=== PATIENT | female | born 1960 | race Caucasian/White ===

== ENCOUNTER 2017-06-10 01:59 | Emergency (ER) | payer OTHER ==
[2017-06-10] MEDS ORDERED: NORMAL SALINE 1000 ML 1,000 ML IV ONE (02:52)
[2017-06-10 02:54] LABS: ABSOLUTE BASOPHILS # (AUTO) 0.1 10^3/uL (0.0-0.2); ABSOLUTE EOSINOPHILS # (AUTO) 0.1 10^3/uL (0.0-0.6); ABSOLUTE LYMPHOCYTES (AUTO) 1.3 10^3/uL (0.5-4.7); ABSOLUTE MONOCYTES (AUTO) 0.6 10^3/uL (0.1-1.4); ABSOLUTE NEUT (AUTO) 7.8 10^3/uL (1.7-8.2); EOSINOPHILS % (AUTO) 0.9 % (0-6); HEMATOCRIT 34.5 % (36.0-47.0); HEMOGLOBIN 11.6 g/dL (12.0-15.5); HGB HCT DIFFERENCE 0.3; LYMPHOCYTES % (AUTO) 13.3 % (13-45); MEAN CORPUSCULAR HEMOGLOBIN 27.2 pg (27.0-33.4); MEAN CORPUSCULAR HGB CONC 33.7 g/dL (32.0-36.0); MEAN CORPUSCULAR VOLUME 81 fl (80-97); MONOCYTES % (AUTO) 6.4 % (3-13); RED BLOOD COUNT 4.28 10^6/uL (3.72-5.28); RED CELL DISTRIBUTION WIDTH 14.5 % (11.5-14.0); SEGMENTED NEUTROPHILS % (AUTO) 78.4 % (42-78); WHITE BLOOD COUNT 9.9 10^3/uL (4.0-10.5)
--- NOTE | 2017-06-10 02:55 | ER Document Report ---
ED General - General Chief Complaint: Fever Stated Complaint: FEVER/BODYACHES Time Seen by Provider: 06/10/17 02:46 Notes: Patient is a 56-year-old female presents with fever and body aches. She started having a fever 2 nights ago. Throughout the day she has had some decreased appetite but no vomiting. No cough or congestion. T-max at home was 101.1. She said when her fever got high and she had complete pain throughout her entire body and is very painful. She had lymphoma in 2004. She said at that time she received Ranexa. She says it felt similar to the pain she got when she received that. She has not had lymphoma recently and she has been in remission. She is followed by Dr. Amber Suarez. She otherwise feels improved now and has no other complaints at this time. TRAVEL OUTSIDE OF THE [place] IN LAST 30 DAYS: No - Related Data Allergies/Adverse Reactions: amoxicillin trihydrate [From Augmentin] Allergy (Severe, Verified 06/10/17 02:01 ) rash Potassium Clavulanate * [From Augmentin] Allergy (Severe, Verified 06/10/17 02: 01) rash Sulfa (Sulfonamide Antibiotics) Allergy (Severe, Verified 06/10/17 02:01) rash Past Medical History - Social History Smoking Status: Never Smoker Frequency of alcohol use: None Drug Abuse: None Family History: Arthritis, Hyperlipidemia, Hypertension - Past Medical History Cardiac Medical History: Denies: Hx Coronary Artery Disease, Hx Heart Attack, Hx Hypertension Pulmonary Medical History: Denies: Hx Asthma, Hx Bronchitis, Hx COPD, Hx Pneumonia Neurological Medical History: Reports: Hx Migraine. Denies: Hx Cerebrovascular Accident, Hx Seizures Endocrine Medical History: Reports: Hx Hypothyroidism Renal/ Medical History: Denies: Hx Peritoneal Dialysis Malignancy Medical History: Reports: Hx Lymphoma - HODGKIN's--TREATED 7 YEARS AGO GI Medical History: Reports: Hx Gastritis, Hx Gastroesophageal Reflux Disease Musculoskeltal Medical History: Reports Hx Arthritis Psychiatric Medical History: Reports: Hx Anxiety, Hx Bipolar Disorder Past Surgical History: Reports: Hx Section, Hx Cholecystectomy, Hx Hysterectomy - Immunizations Hx Diphtheria, Pertussis, Tetanus Vaccination: Yes Review of Systems - Review of Systems Notes: My Normal Review Basic REVIEW OF SYSTEMS: CONSTITUTIONAL : fever EENT: Denies eye, ear, throat, or mouth pain or symptoms. Denies nasal or sinus congestion. CARDIOVASCULAR: Denies chest pain. RESPIRATORY: Denies cough, cold, or chest congestion. Denies shortness of breath, difficulty breathing, or wheezing. GASTROINTESTINAL: Denies abdominal pain. Denies nausea, vomiting, or diarrhea. Denies constipation. Last BM: GENITOURINARY: Denies difficulty urinating, painful urination, burning, frequency, or blood in urine. MUSCULOSKELETAL: bodyaches SKIN: Denies rash or skin lesions. NEUROLOGICAL: Denies altered mental status or loss of consciousness. Denies headache. Denies weakness or paralysis or loss of use of either side. Denies problems with gait or speech. Denies sensory or motor loss. ALL OTHER SYSTEMS REVIEWED AND NEGATIVE. Physical Exam - Vital signs Vitals: Temp Pulse Resp BP Pulse Ox 99.7 F 115 H 20 161/87 H 94 06/10/17 02:01 06/10/17 02:01 06/10/17 02:01 06/10/17 02:01 06/10/17 02:01 - Notes Notes: General Appearance: Well nourished, alert, cooperative, no acute distress, no obvious discomfort. Well appearing. Vitals: reviewed, See vital signs table. Head: no swelling or tenderness to the head Eyes: PERRL, EOMI, Conjuctiva clear Mouth: No decreasd moisture Throat: No tonsillar inflammation, No airway obstruction, No lymphadenopathy Neck: Supple, no neck tenderness, Lungs: No wheezing, No rales, No rhonci, No accessory muscle use, good air exchange bilaterally. Heart: Normal rate, Regular rythm, Abdomen: Normal BS, soft, No rigidity, No abdominal tenderness, No guarding, no rebound, no abdominal masses, no organomegaly Extremities: strength 5/5 in all extremities, good pulses in all extremities, no swelling or tenderness in the extremities, no edema. Skin: warm, dry, appropriate color, no rash Neuro: speech clear, oriented x 3, normal affect, responds appropriately to questions. Course - Re-evaluation Re-evalutation: 06/10/17 05:16 Despite the patient's pneumonia she clinically looks very well. She has no distress. She is very comfortable appearing. Her lung campbell are completely clear. I feel that she is safe to be discharged home. She has not been hospitalized in the last [address] her on Levaquin. She does have a previous history of lymphoma but is in remission and her white blood cell count is completely normal. I strongly encourage her to return to the ER immediately if she has difficulty breathing, fevers, or feels that she is worsening in any way. I encouraged her follow-up closely with her primary care doctor or oncologist in 1-2 days for reevaluation. Patient agrees with plan will be discharged home. Dictation of this chart was performed using voice recognition software; therefore, there may be some unintended grammatical errors. - Vital Signs Vital signs: Temp Pulse Resp BP Pulse Ox 99.7 F 115 H 20 161/87 H 94 06/10/17 02:01 06/10/17 02:01 06/10/17 02:01 06/10/17 02:01 06/10/17 02:01 - Laboratory Result Diagrams: 06/10/17 02:20 06/10/17 02:20 Laboratory results interpreted by me: 06/10/17 06/10/17 02:20 02:20 Hgb 11.6 L Hct 34.5 L RDW 14.5 H Seg Neutrophils % 78.4 H Est GFR (Non-Af Amer) 53 L Glucose 148 H Discharge - Discharge Clinical Impression: Fever Qualifiers: Fever type: unspecified Qualified Code(s): R50.9 - Fever, unspecified Pneumonia Qualifiers: Pneumonia type: due to unspecified organism Laterality: right Lung location: unspecified part of lung Qualified Code(s): J18.9 - Pneumonia, unspecified organism Condition: Good Disposition: HOME, SELF-CARE Additional Instructions: PNEUMONIA: Your examination indicates that you have pneumonia. This is an infection of the lung tissue, usually caused by bacteria or a virus. Symptoms include cough, fever, shaking chills, chest pain, shortness of breath, and coughing up bloody sputum. Treatment for bacterial pneumonia includes rest, antibiotics for 10 to 14 days, increasing your clear liquid intake, a cool mist humidifier at your bedside, and fever medication. Often, a repeat chest X-ray is performed in a few weeks--even if you feel better--to ascertain whether the infection has completely resolved and no underlying lung problem is present. You should call the physician if you develop persistent vomiting, high fever that does not respond to fever medication, increasing shortness of breath , confusion, or lethargy. Also, failure to improve within two to three days is an indication for re-examination. ANTIBIOTIC THERAPY: You have been given an antibiotic prescription. It's important that you take all the medication, unless instructed otherwise by your physician. Failure to complete the entire course can result in relapse of your condition. Common side effects of antibiotics include nausea, intestinal cramping, or diarrhea. Women may develop vaginal yeast infections, and babies can get yeast (thrush) in the mouth following the use of antibiotics. Contact your physician if you develop significant side effects from this medication. Allergy to this antibiotic can result in hives, wheezing, faintness, or itching. If symptoms of allergy occur, stop the medication and call the doctor. LEVOFLOXACIN: You have been given an antibacterial agent, levofloxacin (Levaquin). This medicine is not related to the penicillins, sulfas, cephalosporins, or tetracyclines. It is often given to patients who are allergic to these drugs. It has been chosen for you either because other drugs are not appropriate, or because of the nature of your problem. Levaquin should not be taken with antacids, as these can decrease its effectiveness. It can be taken without regard to meals. LEVAQUIN SHOULD NOT BE TAKEN BY CHILDREN, NURSING WOMEN, OR WOMEN. Although Levaquin is usually well-tolerated, common side effects can include nausea and diarrhea. Contact your doctor if you experience any unusual symptoms while on this medication, such as joint pain or swelling, shortness of breath, wheezing, faintness, or hives. FOLLOW-UP CARE: If you have been referred to a physician for follow-up care, call the physician s office for an appointment as you were instructed or within the next two days. If you experience worsening or a significant change in your symptoms, notify the physician immediately or return to the Emergency Department at any time for re-evaluation. We will discharge her on Levaquin. This is an antibiotic that is typically used for pneumonia. Her chest x-ray shows pneumonia. Your white blood cell count was normal. It is very important you return to the ER immediately if you have fevers, vomiting, difficulty breathing, or feel that you are worsening in any way. Please follow-up with your doctor or oncologist in 1-2 days for reevaluation. Prescriptions: Levofloxacin [Levaquin 750 mg Tablet] 750 mg PO DAILY #7 tablet Forms: Return to Work Referrals: DON COBIAN MD [Primary Care Provider] - Follow up tomorrow
[2017-06-10 02:59] LABS: APPEARANCE,URINE CLEAR; BILIRUBIN,URINE NEGATIVE (NEGATIVE); GLUCOSE, URINE NEGATIVE (NEGATIVE); KETONES,URINE NEGATIVE (NEGATIVE); LEUKOCYTE ESTERASE,URINE NEGATIVE (NEGATIVE); NITRITE,URINE NEGATIVE (NEGATIVE); PROTEIN,URINE NEGATIVE (NEGATIVE); URINE SPECIFIC GRAVITY 1.014; UROBILINOGEN,URINE NEGATIVE mg/dL (<2.0)
[2017-06-10 03:18] LABS: ALANINE AMINOTRANSFERASE 44 U/L (9-52); ALBUMIN 4.5 g/dL (3.5-5.0); ALKALINE PHOSPHATASE 96 U/L (38-126); ANION GAP 12 (5-19); ASPARTATE AMINO TRANSFERASE 26 U/L (14-36); BILIRUBIN,DIRECT 0.4 mg/dL (0.0-0.4); BILIRUBIN,TOTAL 0.7 mg/dL (0.2-1.3); BLOOD UREA NITROGEN 19 mg/dL (7-20); CALCIUM 9.4 mg/dL (8.4-10.2); CARBON DIOXIDE 24 mmol/L (22-30); CHLORIDE 104 mmol/L (98-107); CREATININE RESULT 1.07 mg/dL (0.52-1.25); GLUCOSE 148 mg/dL (75-110); POTASSIUM 4.8 mmol/L (3.6-5.0); SODIUM 140.4 mmol/L (137-145); TOTAL PROTEIN 7.9 g/dL (6.3-8.2)
--- NOTE | 2017-06-10 04:10 | RADIOLOGY REPORT (SQ) ---
EXAM DESCRIPTION: CHEST PA/LAT COMPLETED DATE/TIME: 06/10/2017 3:29 am REASON FOR STUDY: fever COMPARISON: 08/06/2016. EXAM PARAMETERS: NUMBER OF VIEWS: two views TECHNIQUE: Digital Frontal and Lateral radiographic views of the chest acquired. RADIATION DOSE: NA LIMITATIONS: none FINDINGS: LUNGS AND PLEURA: Small to moderate patchiness-streakiness of the right lung base and smal l streakiness of the right mid lung field with obscuration of the right costophrenic angle [facility] ed with prior exam, 08/06/2016. MEDIASTINUM AND HILAR STRUCTURES: No masses or contour abnormalities. HEART AND VASCULAR STRUCTURES: Heart normal size. No evidence for failure. BONES: Possible small chronic deformity of the lateral right mid thoracic ribs. HARDWARE: None in the chest. OTHER: No other significant finding. IMPRESSION: Multifocal right pneumonia/effusion. Differential diagnosis includes asymmetric pulmona ry edema. TECHNICAL DOCUMENTATION: JOB ID: [id number] [employer]- All Rights Reserved
[2017-06-10] MEDS ORDERED: LEVOFLOXACIN 750 MG TABLET PO ONE (05:11)
[2017-06-10 05:34] VITALS: BP 142/82
== END 2017-06-10 05:36 | disposition home or self-care (01) ==
LOC: ER 01:59
DX: J18.9 Pneumonia, unspecified organism (principal); R50.9 Fever, unspecified; R63.0 Anorexia; R52 Pain, unspecified; Z88.0 Allergy status to penicillin; Z88.2 Allergy status to sulfonamides; Z85.71 Personal history of Hodgkin lymphoma
CPT/HCPCS: 99284; 96360; 36415; 85025; 80053; 81001; 87804; 71020; J7030

== ENCOUNTER 2017-07-17 10:37 | Emergency (ER) | payer OTHER ==
[2017-07-17] MEDS ORDERED: LIDOCAINE 2% VISCOUS SOLN 20 ML UDCUP PO ONE (11:26)
[2017-07-17] MEDS ORDERED: ASPIRIN 81 MG TABLET, CHEWABLE PO ONE (11:26)
[2017-07-17] MEDS ORDERED: MAG HYDROX/AL HYDROX/SIMETH SUSP 30 ML UDCUP PO ONE (11:26)
[2017-07-17] MEDS ORDERED: METOCLOPRAMIDE HCL ORAL SOLN 10 MG/10 ML UDCUP PO ONE (11:26)
--- NOTE | 2017-07-17 11:27 | ER Document Report ---
ED Medical Screen (RME) - General Chief Complaint: Chest Pain > 30 Stated Complaint: CHEST PAIN Time Seen by Provider: 07/17/17 11:26 TRAVEL OUTSIDE OF THE [place] IN LAST 30 DAYS: No - HPI Notes: 07/17/17 11:27 Chest pain substernal epigastric pain at 9:00 this morning - Related Data Allergies/Adverse Reactions: amoxicillin trihydrate [From Augmentin] Allergy (Severe, Verified 07/17/17 10:57 ) rash Potassium Clavulanate * [From Augmentin] Allergy (Severe, Verified 07/17/17 10: 57) rash Sulfa (Sulfonamide Antibiotics) Allergy (Severe, Verified 07/17/17 10:57) rash Past Medical History - Past Medical History Cardiac Medical History: Denies: Hx Coronary Artery Disease, Hx Heart Attack, Hx Hypertension Pulmonary Medical History: Denies: Hx Asthma, Hx Bronchitis, Hx COPD, Hx Pneumonia Neurological Medical History: Reports: Hx Migraine. Denies: Hx Cerebrovascular Accident, Hx Seizures Endocrine Medical History: Reports: Hx Hypothyroidism Renal/ Medical History: Denies: Hx Peritoneal Dialysis Malignancy Medical History: Reports: Hx Lymphoma - HODGKIN's--TREATED 7 YEARS AGO GI Medical History: Reports: Hx Gastritis, Hx Gastroesophageal Reflux Disease Musculoskeltal Medical History: Reports Hx Arthritis Psychiatric Medical History: Reports: Hx Anxiety, Hx Bipolar Disorder Past Surgical History: Reports: Hx Section, Hx Cholecystectomy, Hx Hysterectomy - Immunizations Hx Diphtheria, Pertussis, Tetanus Vaccination: Yes Review of Systems - Review of Systems Cardiovascular: Chest pain Gastrointestinal: Abdominal pain Physical Exam - Vital signs Vitals: Temp Pulse Resp BP Pulse Ox 97.8 F 66 16 129/85 H 07/17/17 10:52 07/17/17 10:52 07/17/17 10:52 07/17/17 10:52 07/17/17 10:52 - Abdominal Tenderness: Tender - Tenderness to palpation epigastric region reproduces patient's pain Course - Vital Signs Vital signs: Temp Pulse Resp BP Pulse Ox 97.8 F 66 16 129/85 H 07/17/17 10:52 07/17/17 10:52 07/17/17 10:52 07/17/17 10:52 07/17/17 10:52
--- NOTE | 2017-07-17 11:39 | EKG REPORT ---
SEVERITY:- ABNORMAL ECG - SINUS RHYTHM FIRST DEGREE AV BLOCK NONSPECIFIC INTRAVENTRICULAR CONDUCTION DELAY PROBABLE LEFT VENTRICULAR HYPERTROPHY : Confirmed by: Nikole Hong 17-Jul-2017 11:39:01
[2017-07-17 12:04] LABS: ABSOLUTE BASOPHILS # (AUTO) 0.1 10^3/uL (0.0-0.2); ABSOLUTE EOSINOPHILS # (AUTO) 0.2 10^3/uL (0.0-0.6); ABSOLUTE LYMPHOCYTES (AUTO) 2.3 10^3/uL (0.5-4.7); ABSOLUTE MONOCYTES (AUTO) 0.5 10^3/uL (0.1-1.4); ABSOLUTE NEUT (AUTO) 4.7 10^3/uL (1.7-8.2); BASOPHILS % (AUTO) 1.2 % (0-2); EOSINOPHILS % (AUTO) 2.6 % (0-6); HEMATOCRIT 36.1 % (36.0-47.0); HEMOGLOBIN 12.4 g/dL (12.0-15.5); HGB HCT DIFFERENCE 1.1; LYMPHOCYTES % (AUTO) 29.6 % (13-45); MEAN CORPUSCULAR HEMOGLOBIN 27.3 pg (27.0-33.4); MEAN CORPUSCULAR HGB CONC 34.2 g/dL (32.0-36.0); MEAN CORPUSCULAR VOLUME 80 fl (80-97); MONOCYTES % (AUTO) 6.1 % (3-13); RED BLOOD COUNT 4.52 10^6/uL (3.72-5.28); RED CELL DISTRIBUTION WIDTH 14.8 % (11.5-14.0); SEGMENTED NEUTROPHILS % (AUTO) 60.5 % (42-78); WHITE BLOOD COUNT 7.8 10^3/uL (4.0-10.5)
--- NOTE | 2017-07-17 12:04 | RADIOLOGY REPORT (SQ) ---
EXAM DESCRIPTION: CHEST PA/LAT COMPLETED DATE/TIME: 07/17/2017 11:56 am REASON FOR STUDY: sob COMPARISON: 06/10/2017. EXAM PARAMETERS: NUMBER OF VIEWS: two views TECHNIQUE: Digital Frontal and Lateral radiographic views of the chest acquired. RADIATION DOSE: NA LIMITATIONS: none FINDINGS: LUNGS AND PLEURA: No opacities, masses or pneumothorax. No pleural effusion. MEDIASTINUM AND HILAR STRUCTURES: No masses or contour abnormalities. HEART AND VASCULAR STRUCTURES: Heart normal size. No evidence for failure. BONES: No acute findings. HARDWARE: None in the chest. OTHER: No other significant finding. IMPRESSION: NO SIGNIFICANT RADIOGRAPHIC FINDING IN THE CHEST. TECHNICAL DOCUMENTATION: JOB ID: [id number] [employer]- All Rights Reserved
[2017-07-17 12:23] LABS: ALBUMIN 4.7 g/dL (3.5-5.0); ANION GAP 13 (5-19); BLOOD UREA NITROGEN 18 mg/dL (7-20); CALCIUM 10.4 mg/dL (8.4-10.2); CARBON DIOXIDE 24 mmol/L (22-30); CHLORIDE 110 mmol/L (98-107); CREATININE RESULT 1.14 mg/dL (0.52-1.25); GLUCOSE 102 mg/dL (75-110); POTASSIUM 4.7 mmol/L (3.6-5.0); TOTAL PROTEIN 7.9 g/dL (6.3-8.2)
[2017-07-17 12:25] LABS: ALANINE AMINOTRANSFERASE 56 U/L (9-52); ALKALINE PHOSPHATASE 95 U/L (38-126); ASPARTATE AMINO TRANSFERASE 44 U/L (14-36); BILIRUBIN,DIRECT 0.4 mg/dL (0.0-0.4); BILIRUBIN,TOTAL 0.4 mg/dL (0.2-1.3); CREATINE KINASE 270 U/L (30-135); LIPASE 90.1 U/L (23-300); MAGNESIUM 1.7 mg/dL (1.6-2.3)
--- NOTE | 2017-07-17 12:31 | ER Document Report ---
ED General - General Chief Complaint: Chest Pain > 30 Stated Complaint: CHEST PAIN Time Seen by Provider: 07/17/17 11:26 Mode of Arrival: Ambulatory Information source: Patient Notes: Patient presents emergency department with complaints that she was outside today walking up a hill to her horse when she became short of breath reports she felt like her lungs were in a vice. She also reported she had some pressure in her epigastric area. Denies chest pain. Denies fever vomiting. Denies recent trip, denies trauma. Reports she recently had her horse returned to her and has been working outside a lot with it. Reports the shortness of breath lasted for only minutes but the soreness to her epigastric area lasted for a little bit longer. Reports history of panic attacks which this slightly felt like but it usually presents different, from diaphragm up. Denies history of cardiac disease. Reports history Hodgkin's lymphoma with chemotherapy in 2004. Reports she went back to the house took a shower drove herself to [place] urgent care. At that time she was told she needed to come to the emergency department because they could not draw labs. Reports history of pneumonia last month. Patient denies any type of shortness of breath or chest pain at this time. TRAVEL OUTSIDE OF THE [place] IN LAST 30 DAYS: No - HPI Onset: This morning Quality of pain: No pain Severity: None Associated symptoms: None Exacerbated by: Denies Relieved by: Denies Similar symptoms previously: No Recently seen / treated by doctor: No - Related Data Allergies/Adverse Reactions: amoxicillin trihydrate [From Augmentin] Allergy (Severe, Verified 07/17/17 10:57 ) rash Potassium Clavulanate * [From Augmentin] Allergy (Severe, Verified 07/17/17 10: 57) rash Sulfa (Sulfonamide Antibiotics) Allergy (Severe, Verified 07/17/17 10:57) rash Past Medical History - General Information source: Patient Last Menstrual Period: hyst - Social History Smoking Status: Never Smoker Cigarette use (# per day): No Chew tobacco use (# tins/day): No Frequency of alcohol use: None Drug Abuse: None Lives with: Family Family History: Arthritis, Hyperlipidemia, Hypertension Patient has suicidal ideation: No Patient has homicidal ideation: No - Past Medical History Cardiac Medical History: Denies: Hx Coronary Artery Disease, Hx Heart Attack, Hx Hypertension Pulmonary Medical History: Reports: Hx Pneumonia Denies: Hx Asthma, Hx Bronchitis, Hx COPD Neurological Medical History: Reports: Hx Migraine. Denies: Hx Cerebrovascular Accident, Hx Seizures Endocrine Medical History: Reports: Hx Hypothyroidism Renal/ Medical History: Denies: Hx Peritoneal Dialysis Malignancy Medical History: Reports: Hx Lymphoma - HODGKIN's--TREATED 7 YEARS AGO GI Medical History: Reports: Hx Gastritis, Hx Gastroesophageal Reflux Disease Musculoskeltal Medical History: Reports Hx Arthritis Psychiatric Medical History: Reports: Hx Anxiety, Hx Bipolar Disorder, Other - panic attacks Past Surgical History: Reports: Hx Section, Hx Cholecystectomy, Hx Hysterectomy - Immunizations Hx Diphtheria, Pertussis, Tetanus Vaccination: Yes Review of Systems - Review of Systems Notes: Review HPI for review of systems., All other systems negative Physical Exam - Vital signs Vitals: Temp Pulse Resp BP Pulse Ox 97.8 F 66 16 129/85 H 95 07/17/17 10:52 07/17/17 10:52 07/17/17 10:52 07/17/17 10:52 07/17/17 10:52 - Notes Notes: PHYSICAL EXAMINATION: GENERAL: Well-appearing and in no acute distress HEAD: Atraumatic, normocephalic. EYES: Pupils equal round and reactive to light, extraocular movements intact, sclera anicteric, conjunctiva are normal. ENT: nares patent, oropharynx clear without exudates. Moist mucous membranes. NECK: Normal range of motion, supple without lymphadenopathy LUNGS: CTAB and equal. No wheezes rales or rhonchi. HEART: Regular rate and rhythm without murmurs ABDOMEN: Soft, no tenderness. No guarding, no rebound EXTREMITIES: Normal range of motion, no pitting edema. No cyanosis. NEUROLOGICAL: Cranial nerves grossly intact. Normal sensory/motor exams. PSYCH: Normal mood, normal affect. SKIN: Warm, Dry, normal turgor, no rashes or lesions noted Course - Re-evaluation Re-evalutation: 07/17/17 13:50 CK 270, pt reports she has been working with her horse outside more, troponin neg, cxray neg, no pneumonia, EKG notes 1st degree block which is very subtle but change from [address] delacruz, all labs, cxr, ekg and history reviewed. Pt is in no distress, he agrees no 2nd troponin at this time. Pt safe to fu with pcp, hospital librarian within the next week for recheck and evaluation. - Vital Signs Vital signs: Temp Pulse Resp BP Pulse Ox 97.8 F 66 16 129/85 H 95 07/17/17 10:52 07/17/17 10:52 07/17/17 11:21 07/17/17 10:52 07/17/17 10:52 - Laboratory Result Diagrams: 07/17/17 11:34 07/17/17 11:34 Laboratory results interpreted by me: 07/17/17 07/17/17 11:34 11:34 RDW 14.8 H Sodium 147.0 H Chloride 110 H Est GFR (Non-Af Amer) 50 L Calcium 10.4 H AST 44 H ALT 56 H Creatine Kinase 270 H - Diagnostic Test Radiology reviewed: Image reviewed, Reports reviewed - neg, no pneumonia - EKG Interpretation by Me EKG shows normal: Sinus rhythm Heart block present: 1st Degree Discharge - Discharge Clinical Impression: Shortness of breath, Epigastric pain, Elevated blood pressure reading Condition: Stable Disposition: HOME, SELF-CARE Additional Instructions: *You have been evaluated for shortness of breath, epigastric pain *Monitor your breathing *Follow up with a primary care provider within one week for recheck *Return to ED for worsening condition, changes, needs, difficulty breathing, concerns *Return to ED if not better in 24 hours Monitor your blood pressure. Your blood pressure was elevated today. This may be because you were anxious, in pain or because you need medication. It is important to follow up with your primary care provider for full evaluation. Forms: Elevated Blood Pressure
[2017-07-17 12:32] LABS: TROPONIN I < 0.012 ng/mL
[2017-07-17 14:48] VITALS: BP 125/78
== END 2017-07-17 14:47 | disposition home or self-care (01) ==
LOC: ER 10:37
DX: R06.02 Shortness of breath (principal); R03.0 Elevated blood-pressure reading, without diagnosis of hypertension; R10.13 Epigastric pain; R07.9 Chest pain, unspecified; E03.9 Hypothyroidism, unspecified; Z88.0 Allergy status to penicillin; Z90.49 Acquired absence of other specified parts of digestive tract; Z90.710 Acquired absence of both cervix and uterus; Z85.71 Personal history of Hodgkin lymphoma
CPT/HCPCS: 93005; 99285; 36415; 82553; 82550; 83690; 83735; 85025; 85610; 80053; 84484; 71020; 93010; J3490

== ENCOUNTER 2017-10-20 23:20 | Emergency (ER) | payer OTHER ==
[2017-10-20] MEDS ORDERED: IPRATROPIUM/ALBUTEROL 0.5-2.5 MG/3 ML AMPUL NEB ONE (23:34)
[2017-10-21] MEDS ORDERED: PREDNISONE 20 MG TABLET PO ONE (02:43)
[2017-10-21] MEDS ORDERED: IPRATROPIUM/ALBUTEROL 0.5-2.5 MG/3 ML AMPUL NEB ONE ×2 (02:43)
--- NOTE | 2017-10-21 02:46 | ER Document Report ---
ED Respiratory Problem - General Chief Complaint: Shortness Of Breath Stated Complaint: DIFFICULTY BREATHING Time Seen by Provider: 10/21/17 02:33 Notes: Patient is a 56-year-old female comes emergency department for chief complaint of congestion, postnasal drip, productive cough, and today she started wheezing. She was diagnosed with bronchitis just over a week ago by primary care, has completed azithromycin and also another antibiotic that she cannot remember the name of. She states her sputum has changed from yellow/green to white but she was not wheezing before tonight. She denies fever. She denies chest pain unless she is coughing, she denies dizziness. She denies any history of smoking. Past medical history of lymphoma in 2004, she states she is cleared from it now. TRAVEL OUTSIDE OF THE [place] IN LAST 30 DAYS: No - Related Data Allergies/Adverse Reactions: amoxicillin trihydrate [From Augmentin] Allergy (Severe, Verified 07/17/17 10:57 ) rash Potassium Clavulanate * [From Augmentin] Allergy (Severe, Verified 07/17/17 10: 57) rash Sulfa (Sulfonamide Antibiotics) Allergy (Severe, Verified 07/17/17 10:57) rash Past Medical History - General Information source: Patient - Social History Smoking Status: Never Smoker Frequency of alcohol use: None Drug Abuse: None Lives with: Family Family History: Arthritis, Hyperlipidemia, Hypertension Patient has suicidal ideation: No Patient has homicidal ideation: No - Past Medical History Cardiac Medical History: Denies: Hx Coronary Artery Disease, Hx Heart Attack, Hx Hypertension Pulmonary Medical History: Reports: Hx Pneumonia Denies: Hx Asthma, Hx Bronchitis, Hx COPD Neurological Medical History: Reports: Hx Migraine. Denies: Hx Cerebrovascular Accident, Hx Seizures Endocrine Medical History: Reports: Hx Hypothyroidism Renal/ Medical History: Denies: Hx Peritoneal Dialysis Malignancy Medical History: Reports: Hx Lymphoma - [facility]'s--TREATED 7 YEARS AGO GI Medical History: Reports: Hx Gastritis, Hx Gastroesophageal Reflux Disease Musculoskeltal Medical History: Reports Hx Arthritis Psychiatric Medical History: Reports: Hx Anxiety, Hx Bipolar Disorder Past Surgical History: Reports: Hx Section, Hx Cholecystectomy, Hx Hysterectomy - Immunizations Hx Diphtheria, Pertussis, Tetanus Vaccination: Yes Review of Systems - Review of Systems Constitutional: No symptoms reported EENT: See HPI Cardiovascular: No symptoms reported Respiratory: See HPI Gastrointestinal: No symptoms reported Genitourinary: No symptoms reported Female Genitourinary: No symptoms reported Musculoskeletal: No symptoms reported Skin: No symptoms reported Hematologic/Lymphatic: No symptoms reported Neurological/Psychological: No symptoms reported Physical Exam - Vital signs Vitals: Temp Pulse Resp BP Pulse Ox 98.9 F 94 28 H 150/86 H 96 10/20/17 23:27 10/20/17 23:27 10/20/17 23:27 10/20/17 23:27 10/20/17 23:27 Interpretation: Normal - General General appearance: Appears well, Alert - HEENT Head: Normocephalic, Atraumatic Eyes: Normal Pupils: PERRL - Respiratory Respiratory status: Tachypnea - Mild. No: Respiratory distress, Labored Chest status: Nontender Breath sounds: Nonproductive cough, Wheezing - Expiratory wheezes and scattered coarse breath sounds. No: Rales, Rhonchi, Stridor Chest palpation: Normal - Cardiovascular Rhythm: Regular. No: Tachycardia Heart sounds: Normal auscultation, S1 appreciated, S2 appreciated Murmur: No - Abdominal Inspection: Normal Distension: No distension Bowel sounds: Normal Tenderness: Nontender. No: Tender, Guarding Organomegaly: No organomegaly - Back Back: Normal, Nontender. No: Tender - Extremities General upper extremity: Normal inspection, Nontender, Normal color, Normal ROM , Normal temperature General lower extremity: Normal inspection, Nontender, Normal color, Normal ROM , Normal temperature, Normal weight bearing. 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 Will give DuoNeb treatments, prednisone, perform chest x-ray. No hypoxia, no respiratory distress, patient is a non-smoker with no COPD or asthma history. She denies chest pain, fever, is actually talkative and well- appearing. Still can speak in full sentences. After DuoNeb treatments wheezing resolved, lung auscultation is normal, patient smiling and states she feels much better. Chest x-ray unremarkable. Patient asking to home. Patient will be treated with short course of prednisone, she was given an albuterol inhaler by her recent visit and states she will continue to use it, discussed follow-up, discussed return precautions, patient and state understanding and agreement. - Vital Signs Vital signs: Temp Pulse Resp BP Pulse Ox 98.9 F 88 20 148/75 H 98 10/20/17 23:27 10/21/17 05:16 10/21/17 05:16 10/21/17 05:16 10/21/17 05:16 Discharge - Discharge Clinical Impression: Wheezing, Cough Condition: Stable Disposition: HOME, SELF-CARE Additional Instructions: Your examination and symptoms are consistent with bronchitis. Take prednisone as prescribed, use your albuterol inhaler, you can also take [id number] remedies in addition to this. Your chest x-ray did not show any concerning abnormalities. Follow-up with primary care. Return for any concerning or worsening symptoms including spiking fever, difficulty breathing, or any other concerning or worsening symptoms. Prescriptions: Prednisone [Deltasone 10 mg Tablet] 10 mg PO ASDIR PRN #21 tablet PRN Reason:
--- NOTE | 2017-10-21 04:12 | RADIOLOGY REPORT (SQ) ---
EXAM DESCRIPTION: CHEST PA/LAT CLINICAL HISTORY: 56 years, Female, SOB COMPARISON: 07/17/2017 NUMBER OF VIEWS: 2 LIMITATIONS: None. FINDINGS: Adequate lung volumes, clear parenchyma, normal cardiac silhouette. Small chronic deformity likely of lateral right mid thoracic ribs, stable. Right upper abdominal and left supraclavicular clips. IMPRESSION: No acute cardiopulmonary findings. 2010 [employer]- All Rights Reserved
[2017-10-21 05:17] VITALS: BP 148/75
== END 2017-10-21 04:55 | disposition home or self-care (01) ==
LOC: ER 23:20
DX: R05 Cough (principal); R06.2 Wheezing; R09.82 Postnasal drip; R06.82 Tachypnea, not elsewhere classified; Z85.71 Personal history of Hodgkin lymphoma; Z87.01 Personal history of pneumonia (recurrent); Z88.0 Allergy status to penicillin; Z88.2 Allergy status to sulfonamides
CPT/HCPCS: 94640 ×2; 99285; 71020; J7512; J7620 ×2

== ENCOUNTER 2017-10-23 08:59 | Emergency (ER) | payer OTHER ==
[2017-10-23 09:05] VITALS: BP 160/89
[2017-10-23] MEDS ORDERED: ALBUTEROL SULFATE HFA (90 MCG/PUFF) 8 GM MDI (1 MDI/ER DISP) IH PRN (09:41)
--- NOTE | 2017-10-23 09:41 | ER Document Report ---
ED General - General Chief Complaint: Flu Symptoms Stated Complaint: FEVER Time Seen by Provider: 10/23/17 09:17 Mode of Arrival: Ambulatory Information source: Patient Notes: 56-year-old female who was diagnosed with URI symptoms and started on prednisone presents with complaints of cough and fever. Patient denies any nausea vomiting or diarrhea. Patient noted temperature was 100.7 at home this morning. She did take Aleve and states she feels much better. Patient was told to return immediately if there are any worsening symptoms and she felt anxious and returned TRAVEL OUTSIDE OF THE [place] IN LAST 30 DAYS: No - HPI Onset: Last week Onset/Duration: Better Quality of pain: Achy Severity: Mild Pain Level: Denies Associated symptoms: Body/muscle aches, Shortness of breath Exacerbated by: Denies Relieved by: Denies Similar symptoms previously: Yes Recently seen / treated by doctor: Yes - Related Data Allergies/Adverse Reactions: amoxicillin trihydrate [From Augmentin] Allergy (Severe, Verified 10/23/17 09:00 ) rash Potassium Clavulanate * [From Augmentin] Allergy (Severe, Verified 10/23/17 09: 00) rash Sulfa (Sulfonamide Antibiotics) Allergy (Severe, Verified 10/23/17 09:00) rash Past Medical History - Social History Smoking Status: Never Smoker Cigarette use (# per day): No Chew tobacco use (# tins/day): No Smoking Education Provided: No Family History: Arthritis, Hyperlipidemia, Hypertension - Past Medical History Cardiac Medical History: Denies: Hx Coronary Artery Disease, Hx Heart Attack, Hx Hypertension Pulmonary Medical History: Reports: Hx Pneumonia Denies: Hx Asthma, Hx Bronchitis, Hx COPD Neurological Medical History: Reports: Hx Migraine. Denies: Hx Cerebrovascular Accident, Hx Seizures Endocrine Medical History: Reports: Hx Hypothyroidism Renal/ Medical History: Denies: Hx Peritoneal Dialysis Malignancy Medical History: Reports: Hx Lymphoma - [facility]--TREATED 7 YEARS AGO GI Medical History: Reports: Hx Gastritis, Hx Gastroesophageal Reflux Disease Musculoskeltal Medical History: Reports Hx Arthritis Psychiatric Medical History: Reports: Hx Anxiety, Hx Bipolar Disorder Past Surgical History: Reports: Hx Section, Hx Cholecystectomy, Hx Hysterectomy - Immunizations Hx Diphtheria, Pertussis, Tetanus Vaccination: Yes Review of Systems - Review of Systems Notes: REVIEW OF SYSTEMS: CONSTITUTIONAL : Admits to fever EENT: Denies eye, ear, throat, or mouth pain or symptoms. Denies nasal or sinus congestion or discharge. Denies throat, tongue, or mouth swelling or difficulty swallowing. CARDIOVASCULAR: Denies chest pain. Denies palpitations or racing or irregular heart beat. Denies ankle edema. RESPIRATORY: Admits to shortness of breath wheezing productive cough GASTROINTESTINAL: Denies abdominal pain or distention. Denies nausea, vomiting , or diarrhea. Denies blood in vomitus, stools, or per rectum. Denies black, tarry stools. Denies constipation. GENITOURINARY: Denies difficulty urinating, painful urination, burning, frequency, blood in urine, or discharge. FEMALE GENITOURINARY: Denies vaginal bleeding, heavy or abnormal periods, irregular periods. Denies vaginal discharge or odor. MUSCULOSKELETAL: Admits to joint pain SKIN: Denies rash, lesions or sores. HEMATOLOGIC : Denies easy bruising or bleeding. LYMPHATIC: Denies swollen, enlarged glands. NEUROLOGICAL: Denies confusion or altered mental status. Denies passing out or loss of consciousness. Denies dizziness or lightheadedness. Denies headache. Denies weakness or paralysis or loss of use of either side. Denies problems with gait or speech. Denies sensory loss, numbness, or tingling. Denies seizures. PSYCHIATRIC: Denies anxiety or stress. Denies depression, suicidal ideation, or homicidal ideation. ALL OTHER SYSTEMS REVIEWED AND NEGATIVE. PHYSICAL EXAMINATION: GENERAL: Well-appearing, well-nourished and in no acute distress. HEAD: Atraumatic, normocephalic. EYES: Pupils equal round and reactive to light, extraocular movements intact, conjunctiva are normal. ENT: Nares patent, oropharynx clear without exudates. Moist mucous membranes. NECK: Normal range of motion, supple without lymphadenopathy LUNGS: No respiratory distress faint inspiratory expiratory wheezing HEART: Regular rate and rhythm without murmurs ABDOMEN: Soft, nontender, nondistended abdomen. No guarding, no rebound. No masses appreciated. Female : deferred Musculoskeletal: Normal range of motion, no pitting or edema. No cyanosis. NEUROLOGICAL: Cranial nerves grossly intact. Normal speech, normal gait. Normal sensory, motor exams PSYCH: Normal mood, normal affect. SKIN: Warm, Dry, normal turgor, no rashes or lesions noted. Dictation was performed using [employer] recognition software Physical Exam - Vital signs Vitals: Temp Pulse Resp BP Pulse Ox 99.1 F 99 20 160/89 H 95 10/23/17 09:05 10/23/17 09:05 10/23/17 09:05 10/23/17 09:05 10/23/17 09:05 Course - Re-evaluation Re-evalutation: 10/23/17 17:01 Discussion with the patient, given her current presentation her improvement of symptoms on steroids I do believe that she should continue the current regimen, I did write for another albuterol inhaler for her she does have in fact some wheezing, otherwise she is in no distress looks well. Patient will be discharged home with very close follow-up instructions and I know she will return if there are any other concerns After performing a Medical Screening Examination, I estimate there is LOW risk for ACUTE CORONARY SYNDROME, PULMONARY EMBOLI, RESPIRATORY FAILURE, SEPSIS OR MENINGITIS, thus I consider the discharge disposition reasonable. I have reevaluated this patient multiple times and no significant life threatening changes are noted. The patient and I have discussed the diagnosis and risks, and we agree with discharging home with close follow-up. We also discussed returning to the Emergency Department immediately if new or worsening symptoms occur. We have discussed the symptoms which are most concerning (e.g., changing or worsening pain, trouble swallowing or breathing, neck stiffness, fever) that necessitate immediate return. - Vital Signs Vital signs: Temp Pulse Resp BP Pulse Ox 99.1 F 99 18 160/89 H 95 10/23/17 09:05 10/23/17 09:05 10/23/17 09:25 10/23/17 09:05 10/23/17 09:05 - Diagnostic Test Radiology reviewed: Image reviewed Discharge - Discharge Clinical Impression: Cough, Wheezing Condition: Stable Disposition: HOME, SELF-CARE Instructions: Bronchitis With Bronchospasm (Wheezing) ([facility]) Additional Instructions: Follow up with your physician tomorrow for further care or return to the ED IMMEDIATELY if symptoms worsen or new concerns occur. If you cannot afford to follow up with your primary care physician a list of low cost clinics have been provided at the end of your discharge papers as well.
== END 2017-10-23 09:45 | disposition home or self-care (01) ==
LOC: ER 08:59
DX: R06.2 Wheezing (principal); R05 Cough; R50.9 Fever, unspecified; M79.1 Myalgia; M25.50 Pain in unspecified joint; R06.02 Shortness of breath; Z88.0 Allergy status to penicillin; Z88.2 Allergy status to sulfonamides; Z87.01 Personal history of pneumonia (recurrent); Z85.71 Personal history of Hodgkin lymphoma
CPT/HCPCS: 99283; J3490

== ENCOUNTER 2018-05-03 08:13 | Day surgery (SDC) | payer OTHER ==
[2018-04-29 10:01] LABS: ABSOLUTE BASOPHILS # (AUTO) 0.1 10^3/uL (0.0-0.2); ABSOLUTE EOSINOPHILS # (AUTO) 0.3 10^3/uL (0.0-0.6); ABSOLUTE LYMPHOCYTES (AUTO) 2.5 10^3/uL (0.5-4.7); ABSOLUTE MONOCYTES (AUTO) 0.7 10^3/uL (0.1-1.4); ABSOLUTE NEUT (AUTO) 5.5 10^3/uL (1.7-8.2); BASOPHILS % (AUTO) 0.8 % (0-2); HEMATOCRIT 37.7 % (36.0-47.0); HEMOGLOBIN 12.7 g/dL (12.0-15.5); LYMPHOCYTES % (AUTO) 27.3 % (13-45); MEAN CORPUSCULAR HEMOGLOBIN 26.5 pg (27.0-33.4); MEAN CORPUSCULAR HGB CONC 33.6 g/dL (32.0-36.0); MEAN CORPUSCULAR VOLUME 79 fl (80-97); MONOCYTES % (AUTO) 8.1 % (3-13); PLATELET COUNT 262 10^3/uL (150-450); RED BLOOD COUNT 4.78 10^6/uL (3.72-5.28); RED CELL DISTRIBUTION WIDTH 15.1 % (11.5-14.0); SEGMENTED NEUTROPHILS % (AUTO) 60.8 % (42-78); TOTAL CELLS COUNTED % (AUTO) 100 %; WHITE BLOOD COUNT 9.1 10^3/uL (4.0-10.5)
[2018-04-29 10:21] LABS: INTERNATIONAL RATION (INR) 0.94
[2018-04-29 10:22] LABS: PARTIAL THROMBOPLASTIN TIME 29.8 SEC (23.5-35.8)
--- NOTE | 2018-04-30 00:13 | EKG REPORT ---
SEVERITY:- ABNORMAL ECG - SINUS RHYTHM LEFT VENTRICULAR HYPERTROPHY : Confirmed by: Analisa Lucio MD 30-Apr-2018 00:13:07
[~2018-05-03 08:13] MED LIST: DOXYCYCLINE HYCLATE 100 MG in DEXTROSE 5%-WATER 250 ML IV PRN; LACTATED RINGERS 1000 ML IV PRN; LIDOCAINE 0.5% INJ-PF (5 MG/ML) 50 ML SDV SUBCUT PRN
[2018-05-03] MEDS ORDERED: FENTANYL CITRATE INJ/PF 100 MCG/2 ML AMPUL ONE (09:30)
[2018-05-03] MEDS ORDERED: MIDAZOLAM 2 MG/2 ML INJ ONE ×2 (09:31)
[2018-05-03] MEDS ORDERED: PROPOFOL INJ 200 MG/20 ML VIAL IV ONE (09:31)
[2018-05-03] MEDS ORDERED: LIDOCAINE 0.5% INJ-PF (5 MG/ML) 50 ML SDV ONE (09:32)
[2018-05-03] MEDS ORDERED: KETAMINE HCL INJ 500 MG/10 ML VIAL ONE (10:26)
[2018-05-03] MEDS ORDERED: PROMETHAZINE HCL INJ 25 MG/1 ML VIAL IV PRN (10:44)
[2018-05-03] MEDS ORDERED: DIPHENHYDRAMINE HCL 50 MG/ML VIAL IV PRN (10:44)
[2018-05-03] MEDS ORDERED: FENTANYL CITRATE INJ/PF 100 MCG/2 ML AMPUL IV PRN ×3 (10:44)
--- NOTE | 2018-05-03 11:37 | Operative Report ---
Operative Report DATE OF SURGERY: 05/03/18 PREOPERATIVE DIAGNOSIS: Right carpal tunnel syndrome POSTOPERATIVE DIAGNOSIS: Same OPERATION: Right carpal tunnel release SURGEON: JUAN GONZALEZ ANESTHESIA: Other - Ari block TISSUE REMOVED OR ALTERED: Right carpal tunnel release no specimen COMPLICATIONS: None ESTIMATED BLOOD LOSS: Minimal.Tourniquet time 58 minutes. No bleeding after tourniquet was rel PROCEDURE: The correct side for carpal tunnel release was identified with the patient. The patient was then brought into the operating room and placed on the operating room table in a supine position. A Elverson block was instilled by anesthesia. The tourniquet was set at approximately 290mm Hg. The arm was then prepped with a Betadine scrub and Betadine solution and draped in a sterile aseptic manner. An outlined overlying the carpal tunnel was made and a small zig zag across the wrist was outlined. An incision was then made with a 15 blade. This was carried down through the superficial palmar fascia. The palmaris brevis was identified and was coagulated as we proceeded deeper. Dissection continued until the transverse carpal ligament was exposed. Using a [place] blade a small dissection was performed to get past the surface of the transverse carpal ligament and enter into the carpal canal. After there was exposure a Schleswig elevator was placed to protect the median nerve. Using the freer elevator and the tunnel while protecting the nerve [id number] the transverse carpal ligament was released distally and proximally. Throughout the dissection great caution was used to identify any anomalous branching of the median nerve and motor branch. Along the wrist a small zig zag was carried to the distal most portion of the forearm. We then went ahead and freed the distal and the anti-brachial fascia of the forearm in order to minimize any areas of possible entrapment in the future.. After the dissection was completed confirmation of release into the distal forearm of the antebrachial fascia as well as distally showing the dark yellow fat of the palm. The arch was identified and was not jeopardized throughout the dissection. An epineurotomy was performed of along the course of the median nerve so that there will be no further areas of any compression to the nerve. Throughout the case the bipolar was used for hemostasis . Betadine saline irrigation was performed in the operative field. Once good hemostasis was obtained the closure was then performed using 4-0 and 5 -0 Prolene horizontal mattress and simple sutures. The tourniquet was then released and there was good blood flow returned to the fingers and no signs of any active bleeding at the incision line. Bacitracin was applied then Xeroform was applied and 4 x 4's were placed. A splint was then applied with web roll and Ortho-Glass with Willi wraps. Patient was then reversed from anesthesia and taken to the [facility] for recovery. This dictation was performed with straight and actually speaking. If there are any irregularities please contact the dictating physician. Subjective: No complaints Objective: Vital signs stable afebrile No bleeding Dressing intact Assessment and plan: Doing well. Elevate the operative site. Resume medications. Take antibiotics for 1 day Follow-up Full instructions were given to the patient and family and they understand Portions of this note may be dictated using [employer] voice recognition software. Occasional variations and spelling and vocabulary could be possible and are unintentional. Additionally, there is a chance that some errors may not be caught or corrected. Please notify the offer of any discrepancies noted or if any statements are unclear.
--- NOTE | 2018-05-03 11:41 | Discharge Summary ---
Discharge Summary (SDC) - Discharge Final Diagnosis: Right carpal tunnel syndrome Date of Surgery: 05/03/18 Condition: Good Treatment or Instructions: Keep the hand elevated. Monitor capillary refill. Do not get the splint wet. Antibiotics for 1 day, then discontinue. Elevate operative area to decrease swelling. Do not strain, or lift heavy objects. Call for excessive bleeding, increased temperature of 101, uncontrolled pain, or excessive nausea or vomiting. You may reach Dr. Madera through his office at [phone]. In the event of an emergency after hours, then contact Dr. Madera through [facility]. Return to the office for a postop check on . The time will be scheduled by the nursing staff of [facility] prior to discharge. Please give the patient a copy of their labs and EKG so they can bring this to their PMD. Thank you Portions of this note may be dictated using [employer] voice recognition software. Occasional variations and spelling and vocabulary could be possible and are unintentional. Additionally, there is a chance that some errors may not be caught or corrected. Please notify the offer of any discrepancies noted or if any statements are unclear. Referrals: TJ HERNANDEZ MD [Primary Care Provider] - Discharge Diet: As Tolerated Report the Following to Your Physician Immediately: Unusual Bleeding - Keep hand elevated. Monitor capillary refill. Do not hang the hand down.
[2018-05-03 13:14] VITALS: BP 140/90
[2018-05-03] MEDS ORDERED: KETOROLAC TROMETHAMINE 60 MG/2 ML SDV ONE (16:12)
== END 2018-05-03 13:10 | disposition home or self-care (01) ==
LOC: OROUT 08:13
PROVIDERS: ATTEND Plastic Surgery
DX: G56.01 Carpal tunnel syndrome, right upper limb (principal); Z88.0 Allergy status to penicillin; Z88.2 Allergy status to sulfonamides; Z79.899 Other long term (current) drug therapy; Z88.5 Allergy status to narcotic agent; Z79.51 Long term (current) use of inhaled steroids; Z01.818 Encounter for other preprocedural examination
CPT/HCPCS: 93005; 36415; 85025; 85610; 85730; 93010; 64721; J2250; J3490 ×3; J1885; J3010; J7060; J2704; 1810

== ENCOUNTER 2019-03-16 09:37 | Emergency (ER) | payer OTHER ==
[2019-03-16] MEDS ORDERED: NORMAL SALINE 1000 ML 1,000 ML IV ONE (10:08)
--- NOTE | 2019-03-16 10:11 | ER Document Report ---
ED Seizure - General Chief Complaint: Probable Seizure Stated Complaint: POSSIBLE SEIZURE Time Seen by Provider: 03/16/19 09:55 Primary Care Provider: CORI DANIELS PA-C [Primary Care Provider] - Follow up as needed Notes: 58-year-old female who was sitting on the front porch this morning watching her weed eat the lawn when she had a seizure. stated her arms dropped and she had shaking for about a minute. He activated EMS patient was still having some random shaking on EMS arrival. Patient is returned to baseline. States she takes heavy psychiatric medicine and has tremors and convulsions from time to time. But no established history of seizures. The patient denies any headache blurred vision denies extremity numbness tingling weakness at this time his toe chest pain or shortness of breath no abdominal pain. Denies any recent fever chills denies rashes or neck stiffness. Denies any recent trauma or head injury. - Related Data Allergies/Adverse Reactions: amoxicillin trihydrate [From Augmentin] Allergy (Severe, Verified 03/16/19 11:07) rash Potassium Clavulanate * [From Augmentin] Allergy (Severe, Verified 03/16/19 11:07) rash Sulfa (Sulfonamide Antibiotics) Allergy (Severe, Verified 03/16/19 11:07) rash Penicillins Allergy (Verified 03/16/19 11:07) Generalized rash Past Medical History - Social History Smoking Status: Unknown if Ever Smoked Family History: Arthritis, Hyperlipidemia, Hypertension - Past Medical History Cardiac Medical History: Denies: Hx Coronary Artery Disease, Hx Heart Attack, Hx Hypertension Pulmonary Medical History: Reports: Hx Pneumonia - OCT 2017 Denies: Hx Asthma, Hx Bronchitis, Hx COPD Neurological Medical History: Reports: Hx Migraine. Denies: Hx Cerebrovascular Accident, Hx Seizures Endocrine Medical History: Reports: Hx Hypothyroidism Renal/ Medical History: Denies: Hx Peritoneal Dialysis Malignancy Medical History: Reports: Hx Lymphoma - [facility]IN's--TREATED 7 YEARS AGO GI Medical History: Reports: Hx Gastritis, Hx Gastroesophageal Reflux Disease Musculoskeletal Medical History: Reports Hx Arthritis - HIPS, KNEES Psychiatric Medical History: Reports: Hx Anxiety, Hx Bipolar Disorder Past Surgical History: Reports: Hx Section, Hx Cholecystectomy, Hx Hysterectomy - Immunizations Hx Diphtheria, Pertussis, Tetanus Vaccination: Yes Review of Systems - Review of Systems Constitutional: denies: Chills, Fever Cardiovascular: denies: Chest pain, Edema Respiratory: denies: Cough, Short of breath Gastrointestinal: denies: Diarrhea, Nausea, Vomiting Genitourinary: denies: Dysuria Neurological/Psychological: Seizure. denies: Headaches, Tingling -: Yes All other systems reviewed and negative Physical Exam - Vital signs Vitals: Resp BP Pulse Ox 23 H 142/69 H 95 03/16/19 09:44 03/16/19 09:44 03/16/19 09:44 - Notes Notes: GENERAL_APPEARANCE: well_nourished, alert, cooperative, no_acute_distress, no_obvious_discomfort. VITALS: reviewed, see vital signs table. HEAD: no_swelling\tenderness on the head. EYES: PERRL, EOMI, conjunctiva_clear. NOSE: no_nasal_discharge. MOUTH: (-)decreased moisture. THROAT: no_tonsilar_inflammation, no_airway_obstruction. no_lymphadenopathy NECK: supple, no_neck_tenderness, (-)thyromegaly. BACK: no_back_tenderness. CHEST_WALL: no_chest_tenderness. LUNGS: no_wheezing, no_rales, no_rhonchi, (-)accessory muscle use, good air exchange bilateral. HEART: normal_rate, normal_rhythm, normal_S1, normal_S2, (-)S3, (-)S4, no_murmur, no_rub. ABDOMEN: normal_BS, soft, no_abd_tenderness, (-)guarding, (-)rebound, no_organomegaly, no_abd_masses. EXTREMITIES: strength 5/5 in all_extremities, good pulses in all_extremities, no_swelling\tenderness in the extremities, no_edema. SKIN: warm, dry, good_color, no_rash. MENTAL_STATUS: speech_clear, oriented_X_3, normal_affect, responds_appropriatel y to questions. NEURO: Neg Motor or Sensory Deficits on exam, CN 2-12 intact, DTR 2+ symmetric x 4, No cerbellar signs Course - Re-evaluation Re-evalutation: 03/16/19 10:11 58-year-old female arrives to the ER after a seizure. Patient states she is on psychiatric medicines and has a lot of involuntary movements and tremors. States she has had similar episodes but this is 1 of the most severe. tells a history that sounds like a seizure. Patient had no tongue biting no fecal or urinary incontinence. Will check some generalized lab CT scan the patient's head for looking hemorrhage or mass. 03/16/19 13:19 CT scan was negative. Patient was given 2 L of IV fluids. Patient's BUN and creatinine was mildly elevated. Patient was dehydrated. Patient feels much better after 2 L of IV fluids. She has not had any arrhythmias on the monitor for many hours. No ectopy. Patient states she is feeling fine patient is on a cautery of meds. I spoke with her about seizures. The patient stated that she has had these tremors and convulsive type activity before but no skin seat seizure activity. She had no tongue biting or fecal urinary incontinence. Seizure certainly differential but syncope with convulsive activity is also. I spoke with him they are comfortable going home. He will need to follow-up with her doctor if there is any additional episodes of this they are to return to the ER and then he will need to be evaluated by neurology. Otherwise I will give them an outpatient neurology referral. - Vital Signs Vital signs: Temp Pulse Resp BP Pulse Ox 98.9 F 17 129/75 H 94 03/16/19 10:08 03/16/19 11:02 03/16/19 11:02 03/16/19 11:02 - Laboratory Result Diagrams: 03/16/19 09:50 03/16/19 09:50 Laboratory results interpreted by me: 03/16/19 03/16/19 03/16/19 09:50 09:50 12:10 MCH 26.7 L RDW 14.9 H Potassium 5.6 H Carbon Dioxide 19 L Creatinine 1.74 H Est GFR ( Amer) 37 L Est GFR (Non-Af Amer) 30 L Glucose 219 H Calcium 10.4 H AST 115 H ALT 142 H Creatine Kinase 191 H Urine Protein 100 H Ur Leukocyte Esterase TRACE H - Diagnostic Test Radiology reviewed: Reports reviewed Radiology results interpreted by me: 03/16/19 13:[address] 03/16/19 10:08 IMPRESSION: NORMAL BRAIN CT WITHOUT CONTRAST. EVIDENCE OF ACUTE STROKE: NO. Discharge - Discharge Clinical Impression: Seizure Condition: Good Disposition: HOME, SELF-CARE Instructions: New Seizure ([facility]) Additional Instructions: Plenty of fluids. Follow up with Dr Sow --neurology. For any additional activity return to the ER soon as possible Referrals: BRISEIDA SANDOVAL MD [NO LOCAL MD] - Follow up as needed
[2019-03-16 10:41] LABS: ABSOLUTE BASOPHILS # (AUTO) 0.1 10^3/uL (0.0-0.2); ABSOLUTE EOSINOPHILS # (AUTO) 0.1 10^3/uL (0.0-0.6); ABSOLUTE LYMPHOCYTES (AUTO) 1.7 10^3/uL (0.5-4.7); ABSOLUTE MONOCYTES (AUTO) 0.4 10^3/uL (0.1-1.4); ABSOLUTE NEUT (AUTO) 5.1 10^3/uL (1.7-8.2); EOSINOPHILS % (AUTO) 1.9 % (0-6); HEMOGLOBIN 13.2 g/dL (12.0-15.5); LYMPHOCYTES % (AUTO) 22.7 % (13-45); MEAN CORPUSCULAR HEMOGLOBIN 26.7 pg (27.0-33.4); MEAN CORPUSCULAR HGB CONC 32.9 g/dL (32.0-36.0); MEAN CORPUSCULAR VOLUME 81 fl (80-97); PLATELET COUNT 270 10^3/uL (150-450); RED BLOOD COUNT 4.93 10^6/uL (3.72-5.28); RED CELL DISTRIBUTION WIDTH 14.9 % (11.5-14.0); SEGMENTED NEUTROPHILS % (AUTO) 69.4 % (42-78); TOTAL CELLS COUNTED % (AUTO) 100 %; WHITE BLOOD COUNT 7.3 10^3/uL (4.0-10.5)
[2019-03-16 11:00] LABS: ALANINE AMINOTRANSFERASE 142 U/L (9-52); ALBUMIN 4.6 g/dL (3.5-5.0); ALKALINE PHOSPHATASE 95 U/L (38-126); ANION GAP 18 (5-19); ASPARTATE AMINO TRANSFERASE 115 U/L (14-36); BILIRUBIN,DIRECT 0.3 mg/dL (0.0-0.4); BILIRUBIN,TOTAL 0.4 mg/dL (0.2-1.3); BLOOD UREA NITROGEN 18 mg/dL (7-20); CALCIUM 10.4 mg/dL (8.4-10.2); CARBON DIOXIDE 19 mmol/L (22-30); CHLORIDE 104 mmol/L (98-107); CREATINE KINASE 191 U/L (30-135); GLUCOSE 219 mg/dL (75-110); POTASSIUM 5.6 mmol/L (3.6-5.0); SODIUM 141.1 mmol/L (137-145); TOTAL PROTEIN 8.1 g/dL (6.3-8.2)
--- NOTE | 2019-03-16 11:59 | RADIOLOGY REPORT (SQ) ---
EXAM DESCRIPTION: CT HEAD WITHOUT COMPLETED DATE/TIME: 03/16/2019 11:48 am REASON FOR STUDY: seizure COMPARISON: None. TECHNIQUE: Axial images acquired through the brain without intravenous contrast. Images reviewed wi th bone, brain and subdural windows. Additional sagittal and coronal reconstructions were generated. Images stored on PACS. All CT scanners at this facility use dose modulation, iterative reconstruction, and/or weight based d osing when appropriate to reduce radiation dose to as low as reasonably achievable (ALARA). [facility]: Dose Right [facility]: CareDose [facility]: Dose Right [facility]: Teradose 4D [facility]: [employer] RADIATION DOSE: CT Rad equipment meets quality standard of care and radiation dose reduction techniq ues were employed. CTDIvol: 53.2 mGy. DLP: 1017 mGy-cm. mGy. LIMITATIONS: None. FINDINGS: VENTRICLES: Normal size and contour. CEREBRUM: No masses. No hemorrhage. No midline shift. No evidence for acute infarction. Normal gra y/white matter differentiation. No areas of low density in the white matter. CEREBELLUM: No masses. No hemorrhage. No alteration of density. No evidence for acute infarction. EXTRAAXIAL SPACES: No fluid collections. No masses. ORBITS AND GLOBE: No intra- or extraconal masses. Normal contour of globe without masses. CALVARIUM: No fracture. PARANASAL SINUSES: No fluid or mucosal thickening. SOFT TISSUES: No mass or hematoma. OTHER: No other significant finding. IMPRESSION: NORMAL BRAIN CT WITHOUT CONTRAST. EVIDENCE OF ACUTE STROKE: NO. COMMENT: Quality ID # [id number]: Final reports with documentation of one or more dose reduction techniques (e.g., Automated exposure control, adjustment of the mA and/or kV according to patient size, use of iterative reconstruction technique) TECHNICAL DOCUMENTATION: JOB ID: [id number] [employer]- All Rights Reserved Reading location - IP/workstation name: [email or web address]
[2019-03-16 12:50] LABS: APPEARANCE,URINE CLOUDY; BILIRUBIN,URINE NEGATIVE (NEGATIVE); COLOR,URINE YELLOW; GLUCOSE, URINE NEGATIVE (NEGATIVE); KETONES,URINE NEGATIVE (NEGATIVE); LEUKOCYTE ESTERASE,URINE TRACE (NEGATIVE); NITRITE,URINE NEGATIVE (NEGATIVE); PROTEIN,URINE 100 mg/dL (NEGATIVE); URINE SPECIFIC GRAVITY 1.018; UROBILINOGEN,URINE NEGATIVE mg/dL (<2.0)
[2019-03-16 13:32] VITALS: BP 108/69
--- NOTE | 2019-03-16 14:00 | EKG REPORT ---
SEVERITY:- ABNORMAL ECG - SINUS TACHYCARDIA LEFT VENTRICULAR HYPERTROPHY : Confirmed by: Leeroy Diana MD 16-Mar-2019 14:00:27
== END 2019-03-16 13:40 | disposition home or self-care (01) ==
LOC: ER 09:37
DX: R56.9 Unspecified convulsions (principal); E86.0 Dehydration; Z79.899 Other long term (current) drug therapy; Z85.71 Personal history of Hodgkin lymphoma; Z88.0 Allergy status to penicillin; Z88.2 Allergy status to sulfonamides
CPT/HCPCS: 93005; 99285; 96360; 36415; 82550; 85025; 80053; 81001; 84484; 70450; 93010; J7030

== ENCOUNTER → 2019-04-11 | Outpatient (CLI) | payer OTHER ==
--- NOTE | 2019-04-11 17:44 | NEURO WORKBENCH EEG REPORT ---
EEG Report Patient: Nelly Costa ID: [id number] Referring Doctor: Christine Velarde Date: 04/11/2019 Reason for study: Evaluate Epileptiform activity Medications: Clonazepam, Fluvoxamine, Doxepin, Lamotrigine, Bupropion, Levothyroxine History: This is a 58 year old female with a history of fatty liver, hypothyroidism, diabetes, and bipolar disorder with seizure approximately 4 weeks ago. This EEG was requested for evaluation of epileptiform activity. EEG Interpretation: This EEG was recorded during wakefulness and stage I sleep. The awake EEG is characterized by a background of predominantly diffuse low amplitude beta activity and intermixed 10-12 Hz alpha activity. There is not a well developed posterior dominant rhythm (PDR). The EEG is symmetric in amplitudes. There was rare isolated left hemisphere delta activity and one poorly formed left temporal spike and slow wave. There was prominent EMG artifact obscuring the record, especially over the right hemisphere. There was also occasional isolated electrode artifact obscuring the record. Photic stimulation resulted in photic driving, and there was no epileptiform activity elicited with photic stimulation. Hyperventilation resulted in minimal background slowing (normal for age). The one poorly formed left temporal spike and slow wave occurred approximately 90 seconds after hyperventilation. Stage I sleep was achieved and characterized by slow rolling eye movements and slowing of the background rhythm. Stage II sleep was not achieved. The EKG showed a regular rhythm with typically 75-85 beats per minute. EEG Impression: This EEG is abnormal. The diffuse low amplitude beta activity noted can commonly be seen with medications such as benzodiazepines (patient is taking clonazepam). The rare isolated left hemisphere delta activity and one poorly formed left temporal spike and slow wave are suggestive of a potential foci of left temporal cerebral irritation and dysfunction. I would not qualify the isolated poorly formed left temporal spike and slow wave as definitively epileptiform in etiology, but it is potentially epileptiform. Further evaluation with MRI of the brain with and without gadolinium and thin cuts through the temporal lobes should be considered. It should also be noted that the patient is taking clonazepam and lamotrigine, which could potentially suppress interictal epileptiform activity. If there is high clinical suspicion for epilepsy, then additional EEG evaluation should be considered with a sleep-deprived EEG or more prolonged EEG monitoring. INTERPRETING NEUROLOGIST: Wander Lopez MD Board certified by the [place] [employer] in Neurology, Clinical Neurophysiology, and Sleep Medicine [facility]
== END ==
LOC: NEURO 08:07
PROVIDERS: ATTEND Specialist
DX: R56.9 Unspecified convulsions (principal)
CPT/HCPCS: 95819

== ENCOUNTER 2019-06-29 21:24 | Inpatient (IN) | payer OTHER ==
[2019-06-29 22:09] LABS: VENOUS BLOOD BASE EXCESS -4.6 mmol/L; VENOUS BLOOD HCO3 19.5 mmol/L (20-32); VENOUS BLOOD PCO2 32.8 mmHg (35-63); VENOUS BLOOD PH 7.39 (7.30-7.42)
[2019-06-29 22:10] LABS: ABSOLUTE BASOPHILS # (AUTO) 0.1 10^3/uL (0.0-0.2); ABSOLUTE LYMPHOCYTES (AUTO) 1.3 10^3/uL (0.5-4.7); ABSOLUTE MONOCYTES (AUTO) 1.6 10^3/uL (0.1-1.4); ABSOLUTE NEUT (AUTO) 14.6 10^3/uL (1.7-8.2); BASOPHILS % (AUTO) 0.6 % (0-2); EOSINOPHILS % (AUTO) 0.1 % (0-6); HEMATOCRIT 35.9 % (36.0-47.0); HEMOGLOBIN 11.9 g/dL (12.0-15.5); LYMPHOCYTES % (AUTO) 7.3 % (13-45); MEAN CORPUSCULAR HEMOGLOBIN 26.1 pg (27.0-33.4); MEAN CORPUSCULAR HGB CONC 33.2 g/dL (32.0-36.0); MEAN CORPUSCULAR VOLUME 79 fl (80-97); MONOCYTES % (AUTO) 8.9 % (3-13); PLATELET COUNT 232 10^3/uL (150-450); RED BLOOD COUNT 4.56 10^6/uL (3.72-5.28); RED CELL DISTRIBUTION WIDTH 14.5 % (11.5-14.0); SEGMENTED NEUTROPHILS % (AUTO) 83.1 % (42-78); TOTAL CELLS COUNTED % (AUTO) 100 %; WHITE BLOOD COUNT 17.6 10^3/uL (4.0-10.5)
[2019-06-29 22:19] LABS: INTERNATIONAL RATION (INR) 1.11; PROTHROMBIN TIME 14.4 SEC (11.4-15.4)
[2019-06-29 22:30] LABS: ALBUMIN 4.5 g/dL (3.5-5.0); ALKALINE PHOSPHATASE 81 U/L (38-126); ANION GAP 13 (5-19); ASPARTATE AMINO TRANSFERASE 39 U/L (14-36); BILIRUBIN,TOTAL 0.7 mg/dL (0.2-1.3); BLOOD UREA NITROGEN 27 mg/dL (7-20); CALCIUM 9.8 mg/dL (8.4-10.2); CARBON DIOXIDE 22 mmol/L (22-30); CHLORIDE 100 mmol/L (98-107); GLUCOSE 141 mg/dL (75-110); POTASSIUM 4.5 mmol/L (3.6-5.0); TOTAL PROTEIN 8.4 g/dL (6.3-8.2)
[2019-06-29] MEDS ORDERED: RINGERS SOLUTION,LACTATED 1,000 ML IV ONE ×2 (22:43→22:44)
[2019-06-29] MEDS ORDERED: CEFTRIAXONE 1 GM/D5W RTU 1 GM/50 ML RTUPB IV ONE (22:46)
--- NOTE | 2019-06-29 23:25 | RADIOLOGY REPORT (SQ) ---
EXAM DESCRIPTION: [facility]: XR CHEST 2 VIEWS Views: 2 CLINICAL HISTORY: 58 years Female, fever COMPARISON: 10/21/2017 FINDINGS: The lungs are clear. No pneumothorax or significant pleural effusion. Cardiomediastinal silhouette is within normal limits. Bony structures are unremarkable for age. IMPRESSION: 1. No acute cardiothoracic abnormality.
--- NOTE | 2019-06-29 23:36 | EKG REPORT ---
SEVERITY:- ABNORMAL ECG - SINUS TACHYCARDIA LEFT AXIS DEVIATION LEFT VENTRICULAR HYPERTROPHY : Confirmed by: Leeroy Diana MD 29-Jun-2019 23:36:10
--- NOTE | 2019-06-29 23:49 | ER Document Report ---
ED General - General Chief Complaint: Fever Stated Complaint: FEVER Time Seen by Provider: 06/29/19 22:32 Notes: Patient is a 58-year-old female that presents to the emergency department for chief complaint of fever, generalized weakness, and dysuria. Patient was seen in the emergency department yesterday, for urinary tract infection symptoms, was discharged home on Macrobid, and Pyridium. Patient states that she has not felt a whole lot better, she is having some pain that goes up towards her left flank, has had fever, and felt generally weak, and less energetic at home. She states that the dysuria is improved with the Pyridium, but still having frequency, and having some pain in her left groin going up towards the flank. She denies having any chest pain, shortness of breath, difficulty breathing, vomiting, but admits to having some nausea. She currently describes her pain as a 3 out of 10 describes it as a constant sensation of aching, occasionally sharp. Past Medical History: Diabetes mellitus, bipolar disorder, seizure disorder Past Surgical History: Cholecystectomy Social History: Denies tobacco, alcohol or drug use. Primary care is at [facility]. Family History: Reviewed and noncontributory for presenting illness Allergies: Reviewed, see documented allergy list. REVIEW OF SYSTEMS: Other than noted above, the 12 point review of systems was reviewed with the patient and were negative, all pertinent findings are included in the HPI. PHYSICAL EXAMINATION: Vital signs reviewed, nursing noted reviewed. GENERAL: Patient is somnolent, but answering questions appropriately, not altered. HEAD: Atraumatic, normocephalic. EYES: Eyes appear normal, extraocular movements intact, sclera anicteric, conjunctiva are normal. ENT: nares patent, oropharynx clear without exudates. Moist mucous membranes. NECK: Normal range of motion, supple without lymphadenopathy LUNGS: Breath sounds clear to auscultation bilaterally and equal. No wheezes rales or rhonchi. HEART: Heart rate tachycardic, regular rhythm, no audible murmur. ABDOMEN: Soft, mild CVA tenderness to palpation on the left, none on the right, no anterior abdominal tenderness noted, normoactive bowel sounds. No rebound, guarding, or rigidity. No masses appreciated. EXTREMITIES: Nontender, good range of motion, no pitting or edema. NEUROLOGICAL: No focal neurological deficits. Moves all extremities spontaneously Motor and sensory grossly intact on exam. PSYCH: Normal mood, normal affect. SKIN: Warm, Dry, normal turgor, no rashes or lesions noted on exposed skin TRAVEL OUTSIDE OF THE [place] IN LAST 30 DAYS: No - Related Data Allergies/Adverse Reactions: amoxicillin trihydrate [From Augmentin] Allergy (Severe, Verified 06/28/19 17:37) rash Potassium Clavulanate * [From Augmentin] Allergy (Severe, Verified 06/28/19 17:37) rash Sulfa (Sulfonamide Antibiotics) Allergy (Severe, Verified 06/28/19 17:37) rash Penicillins Allergy (Verified 06/28/19 17:37) Generalized rash Past Medical History - Social History Smoking Status: Never Smoker Chew tobacco use (# tins/day): No Frequency of alcohol use: None Drug Abuse: None Family History: Arthritis, Hyperlipidemia, Hypertension Patient has suicidal ideation: No Patient has homicidal ideation: No - Past Medical History Cardiac Medical History: Denies: Hx Coronary Artery Disease, Hx Heart Attack, Hx Hypertension Pulmonary Medical History: Reports: Hx Pneumonia - OCT 2017 Denies: Hx Asthma, Hx Bronchitis, Hx COPD Neurological Medical History: Reports: Hx Migraine. Denies: Hx Cerebrovascular Accident, Hx Seizures Endocrine Medical History: Reports: Hx Hypothyroidism Renal/ Medical History: Denies: Hx Peritoneal Dialysis Malignancy Medical History: Reports: Hx Lymphoma - [facility]'s--TREATED 7 YEARS AGO GI Medical History: Reports: Hx Gastritis, Hx Gastroesophageal Reflux Disease Musculoskeletal Medical History: Reports Hx Arthritis - HIPS, KNEES Psychiatric Medical History: Reports: Hx Anxiety, Hx Bipolar Disorder Past Surgical History: Reports: Hx Section, Hx Cholecystectomy, Hx Hysterectomy - Immunizations Hx Diphtheria, Pertussis, Tetanus Vaccination: Yes Physical Exam - Vital signs Vitals: Temp Pulse Resp BP Pulse Ox 101.2 F H 141 H 18 120/61 92 06/29/19 21:29 06/29/19 21:29 06/29/19 21:29 06/29/19 21:29 06/29/19 21:29 Course - Re-evaluation Re-evalutation: Patient seen and examined vital signs reviewed. Laboratory data and imaging were ordered as appropriate for the patient's presenting symptoms and complaint, with consideration of any critical or life threatening conditions that may be associated with their obtained history and exam as noted above. Patient was treated with IV fluid bolusing, and IV Rocephin Results were reviewed when available and demonstrated significant leukocytosis, lactic acid was normal, renal function appeared to be similar to her baseline, UA was slightly positive, although patient has had a few doses of antibiotics, prior culture reviewed, is growing gram-negative rods, prior history of E. coli, that was nearly pansensitive, and was sensitive to Rocephin at that time. The patient was re-evaluated and was improved, but still not feeling all that well, she was still noted to be tachycardic as well, but blood pressure was remaining stable., CT imaging of the abdomen and pelvis was negative for renal stone, but did demonstrate left perinephric stranding, which is where she was tender. Evaluation was most consistent with acute pyelonephritis, sepsis, leukocytosis Results were discussed with the patient at this point after careful considera tion I feel that that patient should be admitted to the hospital. This was discussed with the patient that it is in the best interest for their care to be admitted for further evaluation and management. Patient agreed with this plan of care. A call was placed to the admitting physician, Dr. Noriega who graciously accepted the patient onto their service. *Note is created using voice recognition software and may contain spelling, syntax or grammatical errors. Laboratory 06/29/19 06/29/19 06/29/19 21:50 21:50 21:50 WBC 17.6 H RBC 4.56 Hgb 11.9 L Hct 35.9 L MCV 79 L MCH 26.1 L MCHC 33.2 RDW 14.5 H Plt Count 232 Lymph % (Auto) 7.3 L Christian % (Auto) 8.9 Eos % (Auto) 0.1 Baso % (Auto) 0.6 Absolute Neuts (auto) 14.6 H Absolute Lymphs (auto) 1.3 Absolute Monos (auto) 1.6 H Absolute Eos (auto) 0.0 Absolute Basos (auto) 0.1 Seg Neutrophils % 83.1 H PT 14.4 INR 1.11 VBG pH VBG pCO2 VBG HCO3 VBG Base Excess Sodium 135.3 L Potassium 4.5 Chloride 100 Carbon Dioxide 22 Anion Gap 13 BUN 27 H Creatinine 1.68 H Est GFR ( Amer) 38 L Est GFR (MDRD) Non-Af 32 L Glucose 141 H Lactic Acid Calcium 9.8 Total Bilirubin 0.7 Direct Bilirubin 0.0 Neonat Total Bilirubin Not Reportable Neonat Direct Bilirubin Not Reportable Neonat Indirect Bili Not Reportable AST 39 H ALT 61 Alkaline Phosphatase 81 Total Protein 8.4 H Albumin 4.5 06/29/19 06/29/19 21:50 21:50 WBC RBC Hgb Hct MCV MCH MCHC RDW Plt Count Lymph % (Auto) Christian % (Auto) Eos % (Auto) Baso % (Auto) Absolute Neuts (auto) Absolute Lymphs (auto) Absolute Monos (auto) Absolute Eos (auto) Absolute Basos (auto) Seg Neutrophils % PT INR VBG pH 7.39 VBG pCO2 32.8 L VBG HCO3 19.5 L VBG Base Excess -4.6 Sodium Potassium Chloride Carbon Dioxide Anion Gap BUN Creatinine Est GFR ( Amer) Est GFR (MDRD) Non-Af Glucose Lactic Acid 0.9 Calcium Total Bilirubin Direct Bilirubin Neonat Total Bilirubin Neonat Direct Bilirubin Neonat Indirect Bili AST ALT Alkaline Phosphatase Total Protein Albumin Chest X-Ray 06/29/19 21:48 IMPRESSION: 1. No acute cardiothoracic abnormality. Abdomen/Pelvis CT 06/29/19 23:49 IMPRESSION: Left perinephric and periureteric stranding without definite obstructing stone identified. Findings may represent either a recently passed left renal stone versus pyelonephritis. Correlate with urinalysis. - Vital Signs Vital signs: Temp Pulse Resp BP Pulse Ox 101.2 F H 141 H 18 120/61 92 06/29/19 21:29 06/29/19 21:29 06/29/19 21:29 06/29/19 21:29 06/29/19 21:29 - Laboratory Result Diagrams: 06/29/19 21:50 06/29/19 21:50 Laboratory results interpreted by me: 06/29/19 06/29/19 06/29/19 21:50 21:50 21:50 WBC 17.6 H Hgb 11.9 L Hct 35.9 L MCV 79 L MCH 26.1 L RDW 14.5 H Lymph % (Auto) 7.3 L Absolute Neuts (auto) 14.6 H Absolute Monos (auto) 1.6 H Seg Neutrophils % 83.1 H VBG pCO2 32.8 L VBG HCO3 19.5 L Sodium 135.3 L BUN 27 H Creatinine 1.68 H Est GFR ( Amer) 38 L Est GFR (MDRD) Non-Af 32 L Glucose 141 H AST 39 H Total Protein 8.4 H - EKG Interpretation by Me Additional EKG results interpreted by me: EKG demonstrates sinus tachycardia with a ventricular rate of 127 bpm, left axis deviation, QTC 419 ms, no ST elevation, compared to prior EKG from 03/16/2019, without significant change. Discharge - Discharge Clinical Impression: Acute pyelonephritis Sepsis Qualifiers: Sepsis type: sepsis due to unspecified organism Sepsis acute organ dysfunction status: unspecified Qualified Code(s): A41.9 - Sepsis, unspecified organism Leukocytosis Qualifiers: Leukocytosis type: unspecified Qualified Code(s): D72.829 - Elevated white blood cell count, unspecified Condition: Stable Disposition: ADMITTED INPATIENT Admitting Provider: Hari (Hospitalist) Unit Admitted: Medical Floor
[2019-06-30] MEDS ORDERED: ACETAMINOPHEN 325 MG TABLET PO ONE (00:19)
--- NOTE | 2019-06-30 01:08 | RADIOLOGY REPORT (SQ) ---
CT ABDOMEN PELVIS WITHOUT IV CONTRAST EXAM DATE: 06/29/2019 11:49 PM CDT HISTORY: Left flank pain. COMPARISON: None. TECHNIQUE: CT scan of the abdomen and pelvis was performed without IV contrast. This exam was performed according to our departmental dose-optimization program, which includes automated exposure control, adjustment of the mA and/or kV according to patient size and/or use of iterative reconstruction technique. FINDINGS: There is a focal area of atelectasis in the right lower lobe. No pleural or pericardial effusions. There has been a prior cholecystectomy. Hepatosplenomegaly is present. The pancreas, adrenal glands, and right kidney are normal. There is left perinephric and periureteric stranding without a definite obstructing stone identified. Additionally, there are tiny nonobstructing stones in both kidneys. No hydronephrosis. No bladder stones are seen. There has been a prior hysterectomy. The appendix is not visualized. No small bowel obstruction or acute diverticulitis. No free fluid or free air. The aorta is normal caliber. No acute bony findings are seen. IMPRESSION: Left perinephric and periureteric stranding without definite obstructing stone identified. Findings may represent either a recently passed left renal stone versus pyelonephritis. Correlate with urinalysis.
[2019-06-30] MEDS ORDERED: MAGNESIUM HYDROXIDE SUSP 30 ML UDCUP PO PRN (01:24)
[2019-06-30] MEDS ORDERED: MAG HYDROX/AL HYDROX/SIMETH SUSP 30 ML UDCUP PO PRN (01:24)
[2019-06-30] MEDS ORDERED: DOCUSATE SODIUM 100 MG CAPSULE PO ONE (02:00)
[2019-06-30] MEDS ORDERED: DEXTROSE 40% GEL 15 GM TUBE PO PRN ×2 (03:26)
[2019-06-30] MEDS ORDERED: GLUCAGON,HUMAN RECOMB 1 MG INJ IM PRN (03:26)
[2019-06-30] MEDS ORDERED: DEXTROSE 50%-WATER 25 GM/50 ML DISP.SYRIN IV PRN ×2 (03:26)
[2019-06-30] MEDS ORDERED: CLONAZEPAM 1 MG TABLET PO PRN (05:48)
--- NOTE | 2019-06-30 05:48 | PDOC H&P ---
History of Present Illness Admission Date/PCP: 06/30/19 01:31 COIR DANIELS PA-C Patient complains of: Fever History of Present Illness: KYA SERVIN is a 58 year old female with past medical history of morbid obesity, diabetes and bipolar. She was seen in the emergency department 24 hours ago for urinary tract symptoms discharged on Macrobid and Pyridium but developed left-sided back pain prompting reevaluation. She is found to have fever, leukocytosis, pyuria and left-sided pyelonephritis without stone or abscess. She started on empiric antibiotics and referred to the hospitalist for admission. He denies nausea vomiting diarrhea Past Medical History Cardiac Medical History: Denies: Coronary Artery Disease, Myocardial Infarction, Hypertension Pulmonary Medical History: Reports: Pneumonia - OCT 2017 Denies: Asthma, Bronchitis, Chronic Obstructive Pulmonary Disease (COPD) Neurological Medical History: Reports: Migraine Denies: Seizures Endocrine Medical History: Reports: Hypothyroidism Malignancy Medical History: Reports: Lymphoma - HODGKIN's--TREATED 7 YEARS AGO GI Medical History: Reports: Gastroesophageal Reflux Disease Musculoskeltal Medical History: Reports: Arthritis - HIPS, KNEES Psychiatric Medical History: Reports: Bipolar Disorder Hematology: Reports: Anemia - R/T LYMPHOMA Past Surgical History Past Surgical History: Reports: Section, Cholecystectomy, Hysterectomy Social History Information Source: Patient Smoking Status: Never Smoker Frequency of Alcohol Use: None Drugs: None - Advance Directive Resuscitation Status: Full Code Family History Family History: Arthritis, Hyperlipidemia, Hypertension Parental Family History Reviewed: Yes Children Family History Reviewed: Yes Sibling(s) Family History Reviewed.: Yes Medication/Allergy Home Medications: Bupropion HCl [Wellbutrin Sr 150 mg Tablet] 300 mg PO DAILY 12/18/12 Clonazepam [Klonopin 1 mg Tablet] 1 mg PO TID 12/18/12 Levothyroxine Sodium [Synthroid 0.1 mg Tablet] 0.175 mcg PO DAILY 12/18/12 Fluvoxamine Maleate 75 mg PO DAILY 07/18/16 Lamotrigine 150 mg PO DAILY 07/18/16 Omeprazole Magnesium [Prilosec Otc] 20 mg PO DAILY 07/18/16 Aspirin/Acetaminophen/Caffeine [Excedrin Extra Strength Caplet] 1 each PO PRN PRN 04/29/18 Diphenhydramine HCl [Benadryl] 25 mg PO PRN PRN 06/29/18 Lurasidone HCl [Latuda 40 mg Tablet] 40 mg PO DAILY 04/29/18 Nitrofurantoin/Nitrofuran Mac [Macrobid 100 mg Capsule] 100 mg PO BID #20 capsule 06/28/19 Phenazopyridine HCl [Pyridium 200 mg Tablet] 200 mg PO TID #15 tablet 06/28/19 Allergies/Adverse Reactions: amoxicillin trihydrate [From Augmentin] Allergy (Severe, Verified 06/28/19 17:37) rash Potassium Clavulanate * [From Augmentin] Allergy (Severe, Verified 06/28/19 17:37) rash Sulfa (Sulfonamide Antibiotics) Allergy (Severe, Verified 06/28/19 17:37) rash Penicillins Allergy (Verified 06/28/19 17:37) Generalized rash Review of Systems Constitutional: ABSENT: chills, fever(s), headache(s), weight gain, weight loss Eyes: ABSENT: visual disturbances Ears: ABSENT: hearing changes Cardiovascular: ABSENT: chest pain, dyspnea on exertion, edema, orthropnea, palpitations Respiratory: ABSENT: cough, hemoptysis Gastrointestinal: ABSENT: abdominal pain, constipation, diarrhea, hematemesis, hematochezia, nausea, vomiting Genitourinary: ABSENT: dysuria, hematuria Musculoskeletal: ABSENT: joint swelling Integumentary: ABSENT: rash, wounds Neurological: ABSENT: abnormal gait, abnormal speech, confusion, dizziness, focal weakness, syncope Psychiatric: ABSENT: anxiety, depression, homidical ideation, suicidal ideation Endocrine: ABSENT: cold intolerance, heat intolerance, polydipsia, polyuria Hematologic/Lymphatic: ABSENT: easy bleeding, easy bruising Physical Exam Vital Signs: Temp Pulse Resp BP Pulse Ox 101.2 F H 130 H 20 131/67 H 95 06/30/19 04:06 06/30/19 04:06 06/30/19 04:06 06/30/19 04:06 06/30/19 04:06 Intake & Output 06/28/19 06/29/19 06/30/19 11:59 11:59 11:59 Intake Total 2049 Balance 2049 Weight 127 kg General appearance: PRESENT: cooperative, mild distress, morbidly obese, well- developed, well-nourished Head exam: PRESENT: atraumatic, normocephalic Eye exam: PRESENT: conjunctiva pink, EOMI, PERRLA. ABSENT: scleral icterus Ear exam: PRESENT: normal external ear exam Mouth exam: PRESENT: moist, tongue midline Neck exam: ABSENT: carotid bruit, JVD, lymphadenopathy, thyromegaly Respiratory exam: PRESENT: clear to auscultation daryl. ABSENT: rales, rhonchi, wheezes Cardiovascular exam: PRESENT: RRR. ABSENT: diastolic murmur, rubs, systolic murmur Pulses: PRESENT: normal dorsalis pedis pul Vascular exam: PRESENT: normal capillary refill GI/Abdominal exam: PRESENT: distended, hyperactive bowel sounds, normal bowel sounds, soft, tenderness. ABSENT: guarding, mass, organolmegaly, rebound Rectal exam: PRESENT: deferred Extremities exam: PRESENT: full ROM. ABSENT: calf tenderness, clubbing, pedal edema Neurological exam: PRESENT: alert, awake, oriented to person, oriented to place, oriented to time, oriented to situation, CN II-XII grossly intact. ABSENT: motor sensory deficit Psychiatric exam: PRESENT: appropriate affect, normal mood. ABSENT: homicidal ideation, suicidal ideation Skin exam: PRESENT: dry, intact, warm. ABSENT: cyanosis, rash Results Laboratory Results: 06/29/19 21:50 06/29/19 21:50 06/29/19 06/29/19 06/29/19 21:50 21:50 21:50 WBC 17.6 H RBC 4.56 Hgb 11.9 L Hct 35.9 L MCV 79 L MCH 26.1 L MCHC 33.2 RDW 14.5 H Plt Count 232 Seg Neutrophils % 83.1 H VBG pH VBG pCO2 VBG HCO3 VBG Base Excess Sodium 135.3 L Potassium 4.5 Chloride 100 Carbon Dioxide 22 Anion Gap 13 BUN 27 H Creatinine 1.68 H Est GFR ( Amer) 38 L Glucose 141 H Lactic Acid 0.9 Calcium 9.8 Total Bilirubin 0.7 AST 39 H Alkaline Phosphatase 81 Total Protein 8.4 H Albumin 4.5 06/29/19 21:50 WBC RBC Hgb Hct MCV MCH MCHC RDW Plt Count Seg Neutrophils % VBG pH 7.39 VBG pCO2 32.8 L VBG HCO3 19.5 L VBG Base Excess -4.6 Sodium Potassium Chloride Carbon Dioxide Anion Gap BUN Creatinine Est GFR ( Amer) Glucose Lactic Acid Calcium Total Bilirubin AST Alkaline Phosphatase Total Protein Albumin Impressions: Chest X-Ray 06/29/19 21:48 IMPRESSION: 1. No acute cardiothoracic abnormality. Abdomen/Pelvis CT 06/29/19 23:49 IMPRESSION: Left perinephric and periureteric stranding without definite obstructing stone identified. Findings may represent either a recently passed left renal stone versus pyelonephritis. Correlate with urinalysis. Assessment and Plan - Diagnosis (1) Diabetes Is this a current diagnosis for this admission?: Yes Plan: Humalog sliding scale ordered, follow-up outpatient medication reconciliation (2) Bipolar 1 disorder Is this a current diagnosis for this admission?: Yes Plan: Compensated, follow-up outpatient medication reconciliation (3) Acute pyelonephritis Is this a current diagnosis for this admission?: Yes Plan: Complicated by diabetes, without hydronephrosis or abscess. Rocephin ordered, follow-up CBC, blood and urine culture (4) Sepsis Qualifiers: Sepsis type: sepsis due to unspecified organism Sepsis acute organ dysfunction status: unspecified Qualified Code(s): A41.9 - Sepsis, unspecified organism Is this a current diagnosis for this admission?: Yes Plan: IV fluid challenge,, empiric antibiotics, follow-up CBC, blood culture, chemistry and lactic acid - Time Time Spent with patient: 25-34 minutes - Inpatient Certification Medical Necessity: Need Close Monitoring Due to Risk of Patient Decompensation
[2019-06-30] MEDS: NORMAL SALINE 1000 ML 1,000 ML IV PRN ×3 (06:00→19:20)
[2019-06-30] MEDS: HEPARIN SOD (PORCINE) 5,000 UNIT/ML 1 ML VIAL SUBCUT SCH ×3 (06:01→21:52)
[2019-06-30 09:52] LABS: APPEARANCE,URINE SLIGHTLY-CLOUDY; BILIRUBIN,URINE NEGATIVE (NEGATIVE); COLOR,URINE AMBER; GLUCOSE, URINE NEGATIVE (NEGATIVE); KETONES,URINE NEGATIVE (NEGATIVE); LEUKOCYTE ESTERASE,URINE NEGATIVE (NEGATIVE); NITRITE,URINE POSITIVE (NEGATIVE); PROTEIN,URINE 100 mg/dL (NEGATIVE); URINE SPECIFIC GRAVITY 1.019
[2019-06-30] MEDS: INSULIN LISPRO 100 UNIT/ML 3 ML VIAL SUBCUT SCH ×3 (10:23→16:38)
[2019-06-30] MEDS: DOCUSATE SODIUM 100 MG CAPSULE PO SCH ×2 (10:29→17:03)
[2019-06-30] MEDS: ACETAMINOPHEN 325 MG TABLET PO PRN ×3 (12:43→23:43)
[2019-06-30] MEDS ORDERED: IBUPROFEN 800 MG TABLET PO ONE (15:30)
[2019-06-30] MEDS: CEFTRIAXONE 1 GM/D5W RTU 1 GM/50 ML RTUPB IV SCH (21:52)
[2019-07-01] MEDS: HEPARIN SOD (PORCINE) 5,000 UNIT/ML 1 ML VIAL SUBCUT SCH ×3 (05:34→22:29)
[2019-07-01] MEDS: ACETAMINOPHEN 325 MG TABLET PO PRN ×2 (05:38→09:41)
[2019-07-01 05:41] LABS: ABSOLUTE MONOCYTES (AUTO) 1.1 10^3/uL (0.1-1.4); ABSOLUTE NEUT (AUTO) 12.2 10^3/uL (1.7-8.2); BASOPHILS % (AUTO) 0.2 % (0-2); EOSINOPHILS % (AUTO) 0.2 % (0-6); HEMATOCRIT 32.1 % (36.0-47.0); HEMOGLOBIN 10.6 g/dL (12.0-15.5); LYMPHOCYTES % (AUTO) 7.1 % (13-45); MEAN CORPUSCULAR HEMOGLOBIN 26.3 pg (27.0-33.4); MEAN CORPUSCULAR HGB CONC 33.1 g/dL (32.0-36.0); MEAN CORPUSCULAR VOLUME 79 fl (80-97); MONOCYTES % (AUTO) 7.5 % (3-13); PLATELET COUNT 160 10^3/uL (150-450); RED BLOOD COUNT 4.05 10^6/uL (3.72-5.28); RED CELL DISTRIBUTION WIDTH 14.8 % (11.5-14.0); TOTAL CELLS COUNTED % (AUTO) 100 %; WHITE BLOOD COUNT 14.4 10^3/uL (4.0-10.5)
[2019-07-01 06:03] LABS: ANION GAP 10 (5-19); BLOOD UREA NITROGEN 23 mg/dL (7-20); CALCIUM 8.6 mg/dL (8.4-10.2); CARBON DIOXIDE 23 mmol/L (22-30); CHLORIDE 106 mmol/L (98-107); GLUCOSE 123 mg/dL (75-110); POTASSIUM 4.1 mmol/L (3.6-5.0)
[2019-07-01] MEDS: INSULIN LISPRO 100 UNIT/ML 3 ML VIAL SUBCUT SCH ×3 (07:49→16:40)
[2019-07-01] MEDS: DOCUSATE SODIUM 100 MG CAPSULE PO SCH ×2 (09:04→18:29)
[2019-07-01] MEDS: IBUPROFEN 600 MG TABLET PO PRN ×2 (12:24→22:30)
--- NOTE | 2019-07-01 15:55 | PDOC PROGRESS REPORT ---
Subjective Progress Note for:: 07/01/19 Subjective:: No adverse events overnight. She is still having intermittent fever here and there but overall says she feels a lot better. She is eating and drinking without difficulty. She says that her body aches are a lot better. No nausea or vomiting. No flank pain. Reason For Visit: PYELONEPHRITIS Physical Exam Vital Signs: Temp Pulse Resp BP Pulse Ox 100.7 F H 109 H 19 134/85 H 99 07/01/19 13:00 07/01/19 12:00 07/01/19 12:00 07/01/19 12:00 07/01/19 12:00 Intake & Output 06/30/19 07/01/19 07/02/19 06:59 06:59 06:59 Intake Total 2310 3550 Output Total 0 500 Balance 2310 3050 Weight 127 kg 131.4 kg General appearance: PRESENT: no acute distress, cooperative, disheveled, morbidly obese Respiratory exam: PRESENT: clear to auscultation daryl, symmetrical, unlabored. ABSENT: accessory muscle use, chest wall tenderness, crackles, prolonged expiratory phas, rhonchi, tachypnea, wheezes Cardiovascular exam: PRESENT: RRR, +S1, +S2 Pulses: PRESENT: normal carotid pulses Vascular exam: PRESENT: normal capillary refill GI/Abdominal exam: PRESENT: normal bowel sounds, soft. ABSENT: distended, guarding, rebound, tenderness Extremities exam: ABSENT: clubbing, pedal edema Musculoskeletal exam: PRESENT: normal inspection. ABSENT: deformity Neurological exam: PRESENT: alert, awake, oriented to person, oriented to place, oriented to situation Psychiatric exam: PRESENT: appropriate affect, normal mood Skin exam: PRESENT: dry, warm Results Laboratory Results: 07/01/19 04:55 07/01/19 04:55 07/01/19 07/01/19 04:55 04:55 WBC 14.4 H RBC 4.05 Hgb 10.6 L Hct 32.1 L MCV 79 L MCH 26.3 L MCHC 33.1 RDW 14.8 H Plt Count 160 Seg Neutrophils % 85.0 H Sodium 138.5 Potassium 4.1 Chloride 106 Carbon Dioxide 23 Anion Gap 10 BUN 23 H Creatinine 1.64 H Est GFR ( Amer) 39 L Glucose 123 H Calcium 8.6 Impressions: Chest X-Ray 06/29/19 21:48 IMPRESSION: 1. No acute cardiothoracic abnormality. Abdomen/Pelvis CT 06/29/19 23:49 IMPRESSION: Left perinephric and periureteric stranding without definite obstructing stone identified. Findings may represent either a recently passed left renal stone versus pyelonephritis. Correlate with urinalysis. Assessment and Plan - Diagnosis (1) Acute pyelonephritis Is this a current diagnosis for this admission?: Yes Plan: She is on Rocephin, awaiting urine cultures (2) Bipolar 1 disorder Is this a current diagnosis for this admission?: Yes Plan: We resumed her home meds today (3) Sepsis Qualifiers: Sepsis type: sepsis due to unspecified organism Sepsis acute organ dysfunction status: without acute organ dysfunction Qualified Code(s): A41.9 - Sepsis, unspecified organism Is this a current diagnosis for this admission?: Yes Plan: She is on Rocephin for the infection. Her creatinine is in his normal range. Blood pressure is stable. She is not tachycardic or tachypneic. Still has episodic fever. (4) Gram-negative bacteremia Is this a current diagnosis for this admission?: Yes Plan: Likely due to her pyelonephritis. She is on Rocephin awaiting blood cultures. - Time Time Spent with patient: 15-24 minutes
[2019-07-01] MEDS ORDERED: (PENDING PHARMACY ID) (Metformin Hcl [Metformin Hcl] 1,000 MG) PO SCH (18:00)
[2019-07-01] MEDS ORDERED: (PENDING PHARMACY ID) (Doxepin Hcl [Doxepin Hcl] 150 MG) PO SCH (22:00)
[2019-07-01] MEDS ORDERED: (PENDING PHARMACY ID) (Lamotrigine [Lamictal Xr] 200 MG) PO SCH (22:00)
[2019-07-01] MEDS: CEFTRIAXONE 1 GM/D5W RTU 1 GM/50 ML RTUPB IV SCH (22:29)
[2019-07-01] MEDS: DOXEPIN HCL 25 MG CAPSULE PO SCH (22:29)
[2019-07-02] MEDS: HEPARIN SOD (PORCINE) 5,000 UNIT/ML 1 ML VIAL SUBCUT SCH ×3 (06:28→22:06)
[2019-07-02] MEDS: LEVOTHYROXINE SODIUM 0.1 MG TABLET PO SCH (06:28)
[2019-07-02] MEDS ORDERED: (PENDING PHARMACY ID) (Fluvoxamine Maleate [Fluvoxamine Maleate] 100 MG) PO SCH (10:00)
[2019-07-02] MEDS: INSULIN LISPRO 100 UNIT/ML 3 ML VIAL SUBCUT SCH ×3 (10:39→16:56)
[2019-07-02] MEDS: DOCUSATE SODIUM 100 MG CAPSULE PO SCH ×2 (10:50→17:06)
[2019-07-02] MEDS: GLIPIZIDE XL 5 MG TAB.ER.24 PO SCH (10:50)
--- NOTE | 2019-07-02 13:17 | PDOC DISCHARGE SUMMARY ---
General - Admit/Disc Date/PCP Admission Date/Primary Care Provider: 07/01/19 18:07 CORI DANIELS PA-C Discharge Date: 07/02/19 - Discharge Diagnosis (1) Acute pyelonephritis Is this a current diagnosis for this admission?: Yes Summary: Responded well to antibiotic therapy. Grew out a pansensitive E. coli. (2) Bipolar 1 disorder Is this a current diagnosis for this admission?: Yes Summary: Stable on her home medications (3) Sepsis Is this a current diagnosis for this admission?: Yes Summary: Improved with IV fluids and antibiotics (4) Gram-negative bacteremia Is this a current diagnosis for this admission?: Yes Summary: Turned out to be a pansensitive E. coli. She will go home to finish a course of treatment with Keflex. - Additional Information Resuscitation Status: Full Code Discharge Diet: Diabetic Discharge Activity: Activity As Tolerated Prescriptions: Cephalexin Monohydrate [Keflex 500 mg Capsule] 500 mg PO QID #40 capsule Home Medications: Clonazepam [Klonopin 1 mg Tablet] 1 mg PO BIDP PRN 06/30/19 Doxepin HCl 150 mg PO QHS 06/30/19 Fluvoxamine Maleate 100 mg PO DAILY 06/30/19 Glipizide [Glipizide Xl] 10 mg PO DAILY 06/30/19 Lamotrigine [Lamictal Xr] 200 mg PO QHS 06/30/19 Levothyroxine Sodium [Synthroid] 200 mcg PO Q6AM 06/30/19 Cephalexin Monohydrate [Keflex 500 mg Capsule] 500 mg PO QID #40 capsule 07/02/19 History of Present Illness History of Present Illness: KYA SERVIN is a 58 year old female with past medical history of morbid obesity, diabetes and bipolar. She was seen in the emergency department 24 hours ago for urinary tract symptoms discharged on Macrobid and Pyridium but developed left-sided back pain prompting reevaluation. She is found to have fever, leukocytosis, pyuria and left-sided pyelonephritis without stone or abscess. She started on empiric antibiotics and referred to the hospitalist for admission. He denies nausea vomiting diarrhea Hospital Course Hospital Course: She was put on Rocephin and some IV fluids and she began to improve. Blood cultures turn positive for a pansensitive E. coli. She will be able to complete a course of Keflex at home. She is feeling much better at time of discharge. Her home medications were used to treat her comorbid conditions which were not exacerbated during this hospitalization. Her labs and examination were reassuring and she was discharged in good condition. Physical Exam Vital Signs: Temp Pulse Resp BP Pulse Ox 99.4 F 102 H 16 130/88 H 99 07/02/19 11:10 07/02/19 11:10 07/02/19 11:10 07/02/19 11:10 07/02/19 11:10 Intake & Output 07/01/19 07/02/19 07/03/19 06:59 06:59 06:59 Intake Total 3550 2390 Output Total 500 Balance 3050 2390 Weight 131.4 kg General appearance: PRESENT: no acute distress, cooperative, disheveled, morbidly obese Respiratory exam: PRESENT: clear to auscultation daryl, symmetrical, unlabored. ABSENT: accessory muscle use, chest wall tenderness, crackles, prolonged expiratory phas, rhonchi, tachypnea, wheezes Cardiovascular exam: PRESENT: RRR, +S1, +S2 Pulses: PRESENT: normal carotid pulses Vascular exam: PRESENT: normal capillary refill GI/Abdominal exam: PRESENT: normal bowel sounds, soft. ABSENT: distended, guarding, rebound, tenderness Extremities exam: ABSENT: clubbing, pedal edema Musculoskeletal exam: PRESENT: normal inspection. ABSENT: deformity Neurological exam: PRESENT: alert, awake, oriented to person, oriented to place, oriented to situation Psychiatric exam: PRESENT: appropriate affect, normal mood Skin exam: PRESENT: dry, warm Results Laboratory Results: 07/01/19 04:55 07/01/19 04:55 06/30/19 09:35 Clean Catch Midstream Urine Culture - Final NO GROWTH 2 DAYS 06/29/19 23:43 Blood Blood Culture - Final Escherichia Coli 06/29/19 21:50 Blood Blood Culture - Final Escherichia Coli Impressions: Chest X-Ray 06/29/19 21:48 IMPRESSION: 1. No acute cardiothoracic abnormality. Abdomen/Pelvis CT 06/29/19 23:49 IMPRESSION: Left perinephric and periureteric stranding without definite obstructing stone identified. Findings may represent either a recently passed left renal stone versus pyelonephritis. Correlate with urinalysis. Qualifiers - * PATIENT BEING DISCHARGED WITH ANY OF THE FOLLOWING DIAGNOSIS: No Acute Heart Failure - Is this a Heart Failure Patient?: No Plan Time Spent: Greater than 30 Minutes
[2019-07-02] MEDS: IBUPROFEN 600 MG TABLET PO PRN (13:47)
[2019-07-02] MEDS: ACETAMINOPHEN 325 MG TABLET PO PRN (14:19)
[2019-07-02] MEDS: DOXEPIN HCL 25 MG CAPSULE PO SCH (22:05)
[2019-07-02] MEDS: CEFTRIAXONE 1 GM/D5W RTU 1 GM/50 ML RTUPB IV SCH (22:06)
[2019-07-03] MEDS: LEVOTHYROXINE SODIUM 0.1 MG TABLET PO SCH (05:44)
[2019-07-03] MEDS: HEPARIN SOD (PORCINE) 5,000 UNIT/ML 1 ML VIAL SUBCUT SCH (05:44)
[2019-07-03] MEDS: INSULIN LISPRO 100 UNIT/ML 3 ML VIAL SUBCUT SCH (07:49)
[2019-07-03 08:18] VITALS: BP 140/80
[2019-07-03] MEDS: GLIPIZIDE XL 5 MG TAB.ER.24 PO SCH (09:12)
[2019-07-03] MEDS: DOCUSATE SODIUM 100 MG CAPSULE PO SCH (09:12)
== END 2019-07-03 09:25 | disposition home or self-care (01) | DRG 872 ==
LOC: ER 21:24 → INTOOBSV 06-30 01:31 → EH 06-30 01:31 → 4N 06-30 03:56 → OBSVTOIN 07-01 18:07
PROVIDERS: ADMIT Internal Medicine; ATTEND Internal Medicine
DX: A41.9 Sepsis, unspecified organism (principal); N10 Acute pyelonephritis; B96.20 Unspecified Escherichia coli [E. coli] as the cause of diseases classified elsewhere; F31.9 Bipolar disorder, unspecified; E66.01 Morbid (severe) obesity due to excess calories; E11.9 Type 2 diabetes mellitus without complications; E03.9 Hypothyroidism, unspecified; K21.9 Gastro-esophageal reflux disease without esophagitis; G40.909 Epilepsy, unspecified, not intractable, without status epilepticus; F41.9 Anxiety disorder, unspecified; Z79.899 Other long term (current) drug therapy; Z85.72 Personal history of non-Hodgkin lymphomas; Z79.82 Long term (current) use of aspirin; Z79.890 Hormone replacement therapy; Z88.1 Allergy status to other antibiotic agents; Z88.0 Allergy status to penicillin; Z88.2 Allergy status to sulfonamides
CPT/HCPCS: 36415; 71046; 74176; 80048; 80053; 81001; 82803; 82962; 83605; 85025; 85610; 87040; 87077; 87086; 87186; 93005; 93010; 96365; 96366; 99285; G0378; J0696; J1644; J1815; J3490; J7030; J7120